=== PATIENT | male | born 1975 | race Caucasian/White ===

== ENCOUNTER 2017-02-21 21:10 | Inpatient (IN) | payer MEDICAID, OTHER ==
[~2017-02-21] VITALS: Ht 175.3 cm; Wt 74.6 kg
[2017-02-21] MEDS ORDERED: RISP2 PO (21:43)
[2017-02-21 22:02] LABS: BASOPHILS % (AUTO) 0.6 % (0.0-2.0); EOSINOPHILS % (AUTO) 1.8 % (1.0-6.0); HEMATOCRIT 39.7 % (41-53); HEMOGLOBIN 13.5 g/dL (13.5-17.5); LYMPHOCYTES # (AUTO) 1.8 K/uL (1.0-4.8); LYMPHOCYTES % (AUTO) 31.1 % (22.0-44.0); MEAN CORPUSCULAR HEMOGLOBIN 29.6 pg (26.0-34.0); MEAN CORPUSCULAR HGB CONC 33.9 G/dL (31.0-37.0); MEAN CORPUSCULAR VOLUME 87 fL (80-100); MONOCYTES # (AUTO) 0.5 K/uL (0.1-1.0); MONOCYTES % (AUTO) 9.3 % (2.0-9.0); NEUTROPHILS # (AUTO) 3.2 K/uL (1.8-7.7); NEUTROPHILS % (AUTO) 57.2 % (40.0-70.0); PLATELET COUNT (AUTO) 310 K/uL (150-450); RED BLOOD CELL COUNT(AUTO) 4.55 MIL/uL (4.50-5.90); RED CELL DISTRIBUTION WIDTH 12.9 % (11.5-14.5); WHITE BLOOD COUNT (AUTO) 5.7 K/uL (4.5-11.0)
[2017-02-21 22:06] LABS: GLUCOSE,POINT OF CARE 105 MG/DL (70-110)
[2017-02-21 22:13] LABS: ANION GAP 11 mmol/L (8-16); CARBON DIOXIDE 28 mmol/L (22-29); CHLORIDE 100 mmol/L (98-107); CREATININE 0.77 mg/dL (0.60-1.30); GLOMERULAR FILTR. RATE CALC > 60 mL/min (>60); POTASSIUM 3.6 mmol/L (3.5-5.1); SODIUM SERUM 139 mmol/L (136-145); UREA NITROGEN, BLOOD 17 mg/dL (7-18)
[2017-02-21 22:18] LABS: ALANINE AMINOTRANSFERASE 43 U/L (12-78); ALBUMIN 4.2 g/dL (3.4-5.0); ASPARTATE AMINOTRANSFERASE 43 U/L (15-37); BILIRUBIN,TOTAL 3.1 mg/dL (0.1-1.0); TOTAL PROTEIN, SERUM 7.7 g/dL (6.4-8.2)
[2017-02-21] MEDS ORDERED: HALOPERIDOL LACTATE 5 MG/ML VIAL IM ONE (23:00)
[2017-02-21] MEDS ORDERED: DiphenhydrAMINE HCL 50 MG/ML VIAL IM ONE (23:00)
[2017-02-21] MEDS ORDERED: LORazepam 2 MG/ML VIAL IM ONE (23:00)
[2017-02-21] MEDS ORDERED: RisperiDONE 1 MG TABLET PO ONE (23:00)
[2017-02-21] MEDS ORDERED: LORazepam 2 MG TABLET PO ONE (23:00)
[2017-02-22 01:00] VITALS: BP 126/68
[2017-02-22] MEDS ORDERED: HALOPERIDOL 5 MG TABLET PO PRN (05:00)
[2017-02-22] MEDS ORDERED: LORazepam 2 MG TABLET PO PRN (05:00)
[2017-02-22] MEDS ORDERED: ZOLPIDEM TARTRATE 10 MG TABLET PO PRN (05:00)
[2017-02-22] MEDS: RisperiDONE 2 MG TABLET PO SCH ×2 (08:15→17:11)
[2017-02-22 13:56] VITALS: BP 107/64
[2017-02-22] MEDS ORDERED: GLUCAGON,HUMAN RECOMBINANT 1 MG VIAL IM PRN (15:45)
[2017-02-22 16:00] VITALS: BP 118/71
[2017-02-22] MEDS: INSULIN ASPART 100 UNITS/ML SQ PRN ×2 (17:12→20:48)
[2017-02-22 17:57] LABS: GLUCOSE COMMENT 1 Received Meds; GLUCOSE,POINT OF CARE 196 MG/DL (70-110)
[2017-02-22 21:13] LABS: GLUCOSE COMMENT 1 Received Meds; GLUCOSE,POINT OF CARE 253 MG/DL (70-110)
[2017-02-23] MEDS ORDERED: PNEUMOCOCCAL VACCINE POLYVALENT 0.5 ML VIAL [PPSV23] IM ONE (02:00)
[2017-02-23 06:18] LABS: GLUCOSE,POINT OF CARE 136 MG/DL (70-110)
[2017-02-23 07:09] VITALS: BP 106/61
[2017-02-23 08:24] VITALS: BP 104/67
[2017-02-23] MEDS: RisperiDONE 2 MG TABLET PO SCH ×2 (09:23→16:51)
[2017-02-23 16:13] VITALS: BP 112/66
[2017-02-23] MEDS: MetFORMIN HCL 500 MG TABLET PO SCH (16:51)
[2017-02-23 17:22] LABS: GLUCOSE,POINT OF CARE 215 MG/DL (70-110)
[2017-02-24 06:02] LABS: GLUCOSE,POINT OF CARE 123 MG/DL (70-110)
[2017-02-24] MEDS: MetFORMIN HCL 500 MG TABLET PO SCH ×2 (06:47→16:24)
[2017-02-24 07:16] VITALS: BP 113/69
[2017-02-24 08:33] VITALS: BP 128/68
[2017-02-24] MEDS: RisperiDONE 2 MG TABLET PO SCH ×2 (08:44→16:23)
[2017-02-24] MEDS ORDERED: METF500T4 PO (10:43)
[2017-02-24] MEDS: INSULIN ASPART 100 UNITS/ML SQ PRN ×2 (11:15→16:25)
[2017-02-24 11:17] LABS: GLUCOSE,POINT OF CARE 144 MG/DL (70-110)
[2017-02-24 16:02] VITALS: BP 137/79
[2017-02-24 17:13] LABS: GLUCOSE COMMENT 1 Received Meds; GLUCOSE,POINT OF CARE 184 MG/DL (70-110)
== END 2017-02-24 18:55 | disposition home or self-care (01) | DRG 750 ==
LOC: EMS 21:12 → B3A 02-22 11:51
PROVIDERS: ADMIT Psychiatry & Neurology Child & Adolescent Psychiatry; ATTEND Psychiatry & Neurology Child & Adolescent Psychiatry
DX: F20.0 Paranoid schizophrenia (principal); E11.9 Type 2 diabetes mellitus without complications; F17.210 Nicotine dependence, cigarettes, uncomplicated; F15.90 Other stimulant use, unspecified, uncomplicated; Z79.84 Long term (current) use of oral hypoglycemic drugs; Z79.899 Other long term (current) drug therapy; Z87.891 Personal history of nicotine dependence; Z71.51 Drug abuse counseling and surveillance of drug abuser; Z71.6 Tobacco abuse counseling; Z28.21 Immunization not carried out because of patient refusal
CPT/HCPCS: 82962; 90471; 99285; G0480; J1200; J1630; J2060

== ENCOUNTER 2017-11-01 19:44 | Inpatient (IN) | payer MEDICAID, SELFPAY ==
[~2017-11-01] VITALS: Ht 175.3 cm; Wt 74.4 kg
[~2017-11-01 19:44] MED LIST: METF500T4 PO; RISP2 PO
[2017-11-01 20:12] LABS: GLUCOSE,POINT OF CARE 104 MG/DL (70-110)
[2017-11-01] MEDS: RisperiDONE 1 MG TABLET PO ONE ×2 (20:35→20:40)
[2017-11-01] MEDS ORDERED: HALOPERIDOL 5 MG TABLET PO PRN (20:45)
[2017-11-01] MEDS ORDERED: ZOLPIDEM TARTRATE 10 MG TABLET PO PRN (20:45)
[2017-11-01 21:39] LABS: AMPHET/METH SCREEN,URINE POSITIVE (NEGATIVE); BARBITURATE SCREEN, URINE NEGATIVE (NEGATIVE); BENZODIAZEPINES SCREEN,URINE NEGATIVE (NEGATIVE); CANNABINOID SCREEN,URINE NEGATIVE (NEGATIVE); COCAINE SCREEN,URINE NEGATIVE (NEGATIVE); METHADONE SCREEN, URINE NEGATIVE (NEGATIVE); OPIATE SCREEN,URINE NEGATIVE (NEGATIVE)
[2017-11-01 21:42] LABS: PHENCYCLIDINE SCREEN,URINE NEGATIVE (NEGATIVE)
[2017-11-01 21:45] VITALS: BP 146/88
[2017-11-01] MEDS ORDERED: GLUCAGON,HUMAN RECOMBINANT 1 MG VIAL IM PRN (23:00)
[2017-11-01] MEDS ORDERED: PNEUMOCOCCAL VACCINE POLYVALENT 0.5 ML VIAL [PPSV23] IM ONE (23:45)
[2017-11-01] MEDS ORDERED: INFLUENZA VIRUS VACCINE QVS 2017-18 (3YR+)/PF 60 MCG/0.5 ML SYRINGE IM ONE (23:45)
[2017-11-02 00:58] VITALS: BP 131/84
[2017-11-02 09:04] VITALS: BP 118/67
[2017-11-02] MEDS ORDERED: ACETAMINOPHEN 325 MG TABLET PO PRN (09:30)
[2017-11-02] MEDS ORDERED: IBUPROFEN 600 MG TABLET PO PRN (09:30)
[2017-11-02] MEDS ORDERED: PETROLATUM,WHITE 71 GM JELLY TP PRN (09:30)
[2017-11-02] MEDS ORDERED: CloNIDine HCL 0.1 MG TABLET PO PRN (09:30)
[2017-11-02] MEDS ORDERED: BACITRACIN 28.4 GM OINTMENT TP PRN (09:30)
[2017-11-02] MEDS ORDERED: LOPERAMIDE HCL 2 MG CAPSULE PO PRN (09:30)
[2017-11-02] MEDS ORDERED: ALBUTEROL SULFATE HFA 90 MCG/PUFF 8 GM INHALER IH PRN (09:30)
[2017-11-02] MEDS ORDERED: MAGNESIUM HYDROXIDE SUSPENSION 30 ML UDCUP PO PRN (09:30)
[2017-11-02] MEDS ORDERED: ONDANSETRON HCL 4 MG TABLET PO PRN (09:30)
[2017-11-02] MEDS ORDERED: MAG HYDROX/AL HYDROX/SIMETH ES 30 ML SUSPENSION UDCUP PO PRN (09:30)
[2017-11-02] MEDS: OMEPRAZOLE 20 MG CAPSULE PO SCH (12:11)
[2017-11-02] MEDS: DOCUSATE SODIUM 100 MG CAPSULE PO SCH (12:11)
[2017-11-02] MEDS: LORazepam 2 MG TABLET PO PRN (16:28)
[2017-11-02 17:15] VITALS: BP 120/74
[2017-11-02] MEDS: BENZOCAINE/MENTHOL LOZENGE MM PRN (17:21)
[2017-11-02 17:42] LABS: GLUCOMETER DEV NAME(LOC) BV3N5; GLUCOSE,POINT OF CARE 137 MG/DL (70-110)
[2017-11-03 06:35] VITALS: BP 123/70
[2017-11-03] MEDS: MetFORMIN HCL 500 MG TABLET PO SCH ×2 (06:55→16:40)
[2017-11-03 08:08] VITALS: BP 112/62
[2017-11-03] MEDS: OMEPRAZOLE 20 MG CAPSULE PO SCH (08:48)
[2017-11-03] MEDS: LORazepam 2 MG TABLET PO PRN (08:48)
[2017-11-03] MEDS: DOCUSATE SODIUM 100 MG CAPSULE PO SCH (08:48)
[2017-11-03] MEDS: GuaiFENesin/D-METHORPHAN [SUGAR-FREE] 200-20MG/10 ML SYRUP UDCUP PO PRN ×2 (09:32→16:40)
[2017-11-03 12:43] LABS: GLUCOMETER DEV NAME(LOC) BV3N5; GLUCOSE,POINT OF CARE 140 MG/DL (70-110)
[2017-11-03 16:08] VITALS: BP 120/71
[2017-11-03 17:17] LABS: GLUCOMETER DEV NAME(LOC) BV3N5; GLUCOSE,POINT OF CARE 169 MG/DL (70-110)
[2017-11-04 06:14] VITALS: BP 100/65
[2017-11-04] MEDS: MetFORMIN HCL 500 MG TABLET PO SCH ×2 (06:36→16:40)
[2017-11-04] MEDS: DOCUSATE SODIUM 100 MG CAPSULE PO SCH (09:10)
[2017-11-04] MEDS: OMEPRAZOLE 20 MG CAPSULE PO SCH (09:10)
[2017-11-04] MEDS: LORazepam 2 MG TABLET PO PRN ×2 (09:11→16:40)
[2017-11-04] MEDS: GuaiFENesin/D-METHORPHAN [SUGAR-FREE] 200-20MG/10 ML SYRUP UDCUP PO PRN ×2 (09:29→16:40)
[2017-11-04 09:30] VITALS: BP 116/75
[2017-11-04] MEDS: INSULIN ASPART 100 UNITS/ML SQ PRN ×2 (11:56→16:41)
[2017-11-04 12:28] LABS: GLUCOMETER DEV NAME(LOC) BV3N5; GLUCOSE,POINT OF CARE 176 MG/DL (70-110)
[2017-11-04 16:35] VITALS: BP 115/82
[2017-11-04] MEDS: RisperiDONE 2 MG TABLET PO SCH (16:40)
[2017-11-04] MEDS: CARBAMIDE PEROXIDE 6.5% 15 ML OTIC SOLUTION AD SCH (16:44)
[2017-11-04 17:53] LABS: GLUCOMETER DEV NAME(LOC) BV3N5; GLUCOSE,POINT OF CARE 158 MG/DL (70-110)
[2017-11-05 05:27] VITALS: BP 122/73
[2017-11-05] MEDS: MetFORMIN HCL 500 MG TABLET PO SCH ×2 (06:53→16:34)
[2017-11-05 08:30] VITALS: BP 105/52
[2017-11-05] MEDS: DOCUSATE SODIUM 100 MG CAPSULE PO SCH (09:00)
[2017-11-05] MEDS: OMEPRAZOLE 20 MG CAPSULE PO SCH (09:00)
[2017-11-05] MEDS: LORazepam 2 MG TABLET PO PRN (09:32)
[2017-11-05] MEDS: CARBAMIDE PEROXIDE 6.5% 15 ML OTIC SOLUTION AD SCH ×2 (09:32→16:09)
[2017-11-05] MEDS: RisperiDONE 2 MG TABLET PO SCH ×2 (09:41→16:10)
[2017-11-05 11:53] LABS: GLUCOMETER DEV NAME(LOC) BV3N5; GLUCOSE,POINT OF CARE 124 MG/DL (70-110)
[2017-11-05 16:03] VITALS: BP 101/53
[2017-11-05 17:43] LABS: GLUCOMETER DEV NAME(LOC) BV3N5; GLUCOSE,POINT OF CARE 129 MG/DL (70-110)
[2017-11-05 20:52] LABS: GLUCOMETER DEV NAME(LOC) BV3N5; GLUCOSE,POINT OF CARE 144 MG/DL (70-110)
[2017-11-06 06:13] VITALS: BP 115/63
[2017-11-06 06:22] LABS: GLUCOMETER DEV NAME(LOC) BV3N5; GLUCOSE,POINT OF CARE 120 MG/DL (70-110)
[2017-11-06] MEDS: MetFORMIN HCL 500 MG TABLET PO SCH ×2 (06:39→17:15)
[2017-11-06 08:10] VITALS: BP 107/62
[2017-11-06] MEDS: BENZOCAINE/MENTHOL LOZENGE MM PRN (09:26)
[2017-11-06] MEDS: LORazepam 2 MG TABLET PO PRN ×2 (09:27→17:16)
[2017-11-06] MEDS: DOCUSATE SODIUM 100 MG CAPSULE PO SCH (09:27)
[2017-11-06] MEDS: OMEPRAZOLE 20 MG CAPSULE PO SCH (09:27)
[2017-11-06] MEDS: RisperiDONE 2 MG TABLET PO SCH ×2 (09:27→17:15)
[2017-11-06] MEDS: CARBAMIDE PEROXIDE 6.5% 15 ML OTIC SOLUTION AD SCH ×2 (10:04→17:15)
[2017-11-06 16:06] VITALS: BP 114/62
[2017-11-06] MEDS: INSULIN ASPART 100 UNITS/ML SQ PRN (16:30)
[2017-11-06 17:08] LABS: GLUCOMETER DEV NAME(LOC) BV3N5; GLUCOSE,POINT OF CARE 147 MG/DL (70-110)
[2017-11-06] MEDS: GuaiFENesin/D-METHORPHAN [SUGAR-FREE] 200-20MG/10 ML SYRUP UDCUP PO PRN (17:16)
[2017-11-07] MEDS: MetFORMIN HCL 500 MG TABLET PO SCH (06:46)
[2017-11-07 06:47] LABS: GLUCOMETER DEV NAME(LOC) BV3N5; GLUCOSE,POINT OF CARE 111 MG/DL (70-110)
[2017-11-07 06:59] VITALS: BP 110/70
[2017-11-07 08:57] VITALS: BP 105/69
[2017-11-07] MEDS: RisperiDONE 2 MG TABLET PO SCH (09:07)
[2017-11-07] MEDS: OMEPRAZOLE 20 MG CAPSULE PO SCH (09:07)
[2017-11-07] MEDS: DOCUSATE SODIUM 100 MG CAPSULE PO SCH (09:07)
[2017-11-07] MEDS: CARBAMIDE PEROXIDE 6.5% 15 ML OTIC SOLUTION AD SCH (09:08)
[2017-11-07] MEDS: GuaiFENesin/D-METHORPHAN [SUGAR-FREE] 200-20MG/10 ML SYRUP UDCUP PO PRN (10:15)
[2017-11-07 11:27] LABS: GLUCOMETER DEV NAME(LOC) BV3N5; GLUCOSE,POINT OF CARE 112 MG/DL (70-110)
[2017-11-07] MEDS ORDERED: CARB15DR61 (12:39)
== END 2017-11-07 14:11 | disposition home or self-care (01) | DRG 750 ==
LOC: EMS 19:47 → B3A 20:58
PROVIDERS: ADMIT Psychiatry & Neurology Psychiatry; ATTEND Psychiatry & Neurology Psychiatry
DX: F25.9 Schizoaffective disorder, unspecified (principal); E11.9 Type 2 diabetes mellitus without complications; R45.851 Suicidal ideations; F17.210 Nicotine dependence, cigarettes, uncomplicated; F41.9 Anxiety disorder, unspecified; F15.90 Other stimulant use, unspecified, uncomplicated; K21.9 Gastro-esophageal reflux disease without esophagitis; Z79.899 Other long term (current) drug therapy
CPT/HCPCS: 82962; 90471; 99285

== ENCOUNTER 2018-01-01 20:35 | Emergency (ER) | payer MEDICAID, OTHER ==
[~2018-01-01] VITALS: Ht 175.3 cm; Wt 75.5 kg
[~2018-01-01 20:35] MED LIST changes: +BENZ2TAB10 PO; +CARB15DR61; +LEVO25TA9 PO
[2018-01-01 20:39] VITALS: BP 140/65
[2018-01-01 20:47] LABS: GLUCOSE,POINT OF CARE 86 MG/DL (70-110)
[2018-01-01 21:04] LABS: ANION GAP 6 mmol/L (8-16); CARBON DIOXIDE 35 mmol/L (22-29); CHLORIDE 100 mmol/L (98-107); CREATININE 0.82 mg/dL (0.60-1.30); GLOMERULAR FILTR. RATE CALC > 60 mL/min (>60); GLUCOSE,RANDOM 104 mg/dL (70-110); POTASSIUM 3.9 mmol/L (3.5-5.1); SODIUM SERUM 141 mmol/L (136-145); UREA NITROGEN, BLOOD 20 mg/dL (7-18)
[2018-01-01 21:08] LABS: BASOPHILS % (AUTO) 0.6 % (0.0-2.0); EOSINOPHILS % (AUTO) 1.3 % (1.0-6.0); HEMATOCRIT 40.3 % (41-53); HEMOGLOBIN 14.2 g/dL (13.5-17.5); LYMPHOCYTES % (AUTO) 52.2 % (22.0-44.0); MEAN CORPUSCULAR HEMOGLOBIN 30.9 pg (26.0-34.0); MEAN CORPUSCULAR HGB CONC 35.3 G/dL (31.0-37.0); MEAN CORPUSCULAR VOLUME 88 fL (80-100); MONOCYTES # (AUTO) 0.3 K/uL (0.1-1.0); MONOCYTES % (AUTO) 8.8 % (2.0-9.0); NEUTROPHILS # (AUTO) 1.5 K/uL (1.8-7.7); NEUTROPHILS % (AUTO) 37.1 % (40.0-70.0); PLATELET COUNT (AUTO) 297 K/uL (150-450); RED CELL DISTRIBUTION WIDTH 12.6 % (11.5-14.5)
[2018-01-01 21:10] LABS: AMPHET/METH SCREEN,URINE NEGATIVE (NEGATIVE); BARBITURATE SCREEN, URINE NEGATIVE (NEGATIVE); BENZODIAZEPINES SCREEN,URINE NEGATIVE (NEGATIVE); CANNABINOID SCREEN,URINE NEGATIVE (NEGATIVE); COCAINE SCREEN,URINE NEGATIVE (NEGATIVE); METHADONE SCREEN, URINE NEGATIVE (NEGATIVE); OPIATE SCREEN,URINE NEGATIVE (NEGATIVE)
[2018-01-01 21:10] LABS: ALANINE AMINOTRANSFERASE 24 U/L (12-78); ALBUMIN 4.1 g/dL (3.4-5.0); ALKALINE PHOSPHATASE 45 U/L (46-116); ASPARTATE AMINOTRANSFERASE 15 U/L (15-37); BILIRUBIN,TOTAL 0.6 mg/dL (0.1-1.0); TOTAL PROTEIN, SERUM 7.4 g/dL (6.4-8.2)
[2018-01-01 21:11] LABS: PHENCYCLIDINE SCREEN,URINE NEGATIVE (NEGATIVE)
== END 2018-01-01 22:41 | disposition home or self-care (01) ==
LOC: EMS 20:40
DX: F20.9 Schizophrenia, unspecified (principal); E11.9 Type 2 diabetes mellitus without complications; F17.210 Nicotine dependence, cigarettes, uncomplicated
CPT/HCPCS: 36415; 80053; 80307; 82962; 85025; 99284; 99406; G0480

== ENCOUNTER 2018-01-02 07:08 | Emergency (ER) | payer OTHER ==
[~2018-01-02] VITALS: Ht 175.3 cm; Wt 75.0 kg
[2018-01-02 07:38] LABS: BASOPHILS % (AUTO) 0.6 % (0.0-2.0); EOSINOPHILS % (AUTO) 1.9 % (1.0-6.0); HEMOGLOBIN 13.7 g/dL (13.5-17.5); LYMPHOCYTES % (AUTO) 41.8 % (22.0-44.0); MEAN CORPUSCULAR HEMOGLOBIN 30.9 pg (26.0-34.0); MEAN CORPUSCULAR HGB CONC 35.3 G/dL (31.0-37.0); MEAN CORPUSCULAR VOLUME 88 fL (80-100); MONOCYTES # (AUTO) 0.5 K/uL (0.1-1.0); MONOCYTES % (AUTO) 10.6 % (2.0-9.0); NEUTROPHILS # (AUTO) 2.2 K/uL (1.8-7.7); NEUTROPHILS % (AUTO) 45.1 % (40.0-70.0); PLATELET COUNT (AUTO) 272 K/uL (150-450); RED BLOOD CELL COUNT(AUTO) 4.45 MIL/uL (4.50-5.90); RED CELL DISTRIBUTION WIDTH 12.7 % (11.5-14.5)
[2018-01-02 07:48] LABS: ANION GAP 7 mmol/L (8-16); CALCIUM, TOTAL 8.7 mg/dL (8.8-10.5); CARBON DIOXIDE 34 mmol/L (22-29); CHLORIDE 100 mmol/L (98-107); CREATININE 0.83 mg/dL (0.60-1.30); GLOMERULAR FILTR. RATE CALC > 60 mL/min (>60); GLUCOSE,RANDOM 111 mg/dL (70-110); POTASSIUM 3.8 mmol/L (3.5-5.1); SODIUM SERUM 141 mmol/L (136-145); UREA NITROGEN, BLOOD 16 mg/dL (7-18)
[2018-01-02 07:53] LABS: ALANINE AMINOTRANSFERASE 27 U/L (12-78); ALBUMIN 3.9 g/dL (3.4-5.0); ALKALINE PHOSPHATASE 44 U/L (46-116); ASPARTATE AMINOTRANSFERASE 18 U/L (15-37); BILIRUBIN,TOTAL 0.6 mg/dL (0.1-1.0); TOTAL PROTEIN, SERUM 7.1 g/dL (6.4-8.2)
[2018-01-02 08:42] LABS: AMPHET/METH SCREEN,URINE NEGATIVE (NEGATIVE); BARBITURATE SCREEN, URINE NEGATIVE (NEGATIVE); BENZODIAZEPINES SCREEN,URINE NEGATIVE (NEGATIVE); CANNABINOID SCREEN,URINE NEGATIVE (NEGATIVE); COCAINE SCREEN,URINE NEGATIVE (NEGATIVE); METHADONE SCREEN, URINE NEGATIVE (NEGATIVE); OPIATE SCREEN,URINE NEGATIVE (NEGATIVE)
[2018-01-02 08:45] LABS: PHENCYCLIDINE SCREEN,URINE NEGATIVE (NEGATIVE)
[2018-01-02 09:49] VITALS: BP 132/88
== END 2018-01-02 10:00 | disposition home or self-care (01) ==
LOC: EMS 07:09
DX: F32.9 Major depressive disorder, single episode, unspecified (principal); F20.9 Schizophrenia, unspecified; E11.9 Type 2 diabetes mellitus without complications; F17.210 Nicotine dependence, cigarettes, uncomplicated
CPT/HCPCS: 36415; 80053; 80307; 82962; 85025; 99285; G0480

== ENCOUNTER 2018-01-04 08:22 | Inpatient (IN) | payer MEDICAID, OTHER ==
[~2018-01-04] VITALS: Ht 170.2 cm; Wt 73.5 kg
[~2018-01-04 08:22] MED LIST changes: -CARB15DR61
[2018-01-04 08:37] LABS: GLUCOSE,POINT OF CARE 100 MG/DL (70-110)
[2018-01-04 09:04] LABS: BASOPHILS % (AUTO) 0.4 % (0.0-2.0); EOSINOPHILS % (AUTO) 0.1 % (1.0-6.0); HEMATOCRIT 40.4 % (41-53); HEMOGLOBIN 14.3 g/dL (13.5-17.5); LYMPHOCYTES # (AUTO) 1.1 K/uL (1.0-4.8); LYMPHOCYTES % (AUTO) 14.8 % (22.0-44.0); MEAN CORPUSCULAR HEMOGLOBIN 30.8 pg (26.0-34.0); MEAN CORPUSCULAR HGB CONC 35.3 G/dL (31.0-37.0); MEAN CORPUSCULAR VOLUME 87 fL (80-100); MONOCYTES # (AUTO) 0.5 K/uL (0.1-1.0); MONOCYTES % (AUTO) 6.7 % (2.0-9.0); PLATELET COUNT (AUTO) 299 K/uL (150-450); RED BLOOD CELL COUNT(AUTO) 4.64 MIL/uL (4.50-5.90); RED CELL DISTRIBUTION WIDTH 12.8 % (11.5-14.5)
[2018-01-04 09:06] LABS: AMPHET/METH SCREEN,URINE POSITIVE (NEGATIVE); BARBITURATE SCREEN, URINE NEGATIVE (NEGATIVE); BENZODIAZEPINES SCREEN,URINE NEGATIVE (NEGATIVE); CANNABINOID SCREEN,URINE NEGATIVE (NEGATIVE); COCAINE SCREEN,URINE NEGATIVE (NEGATIVE); METHADONE SCREEN, URINE NEGATIVE (NEGATIVE); OPIATE SCREEN,URINE NEGATIVE (NEGATIVE)
[2018-01-04 09:07] LABS: PHENCYCLIDINE SCREEN,URINE NEGATIVE (NEGATIVE)
[2018-01-04 09:13] LABS: ANION GAP 12 mmol/L (8-16); CALCIUM, TOTAL 9.5 mg/dL (8.8-10.5); CARBON DIOXIDE 29 mmol/L (22-29); CHLORIDE 98 mmol/L (98-107); CREATININE 0.99 mg/dL (0.60-1.30); GLOMERULAR FILTR. RATE CALC > 60 mL/min (>60); GLUCOSE,RANDOM 103 mg/dL (70-110); SODIUM SERUM 139 mmol/L (136-145); UREA NITROGEN, BLOOD 26 mg/dL (7-18)
[2018-01-04 09:19] LABS: ALANINE AMINOTRANSFERASE 26 U/L (12-78); ALBUMIN 4.6 g/dL (3.4-5.0); ALKALINE PHOSPHATASE 58 U/L (46-116); ASPARTATE AMINOTRANSFERASE 31 U/L (15-37); BILIRUBIN,TOTAL 2.4 mg/dL (0.1-1.0)
[2018-01-04] MEDS ORDERED: HALOPERIDOL 5 MG TABLET PO ONE (10:00)
[2018-01-04] MEDS ORDERED: LORazepam 1 MG TABLET PO ONE (10:00)
[2018-01-04] MEDS ORDERED: DiphenhydrAMINE HCL 25 MG CAPSULE PO ONE (10:00)
[2018-01-04 11:12] LABS: GLUCOSE,POINT OF CARE 112 MG/DL (70-110)
[2018-01-04] MEDS ORDERED: HALOPERIDOL 5 MG TABLET PO PRN (12:00)
[2018-01-04] MEDS ORDERED: ZOLPIDEM TARTRATE 10 MG TABLET PO PRN (12:00)
[2018-01-04 12:31] VITALS: BP 118/72
[2018-01-04] MEDS ORDERED: PNEUMOCOCCAL VACCINE POLYVALENT 0.5 ML VIAL [PPSV23] IM ONE (12:45)
[2018-01-04] MEDS: OLANZapine 5 MG TABLET PO SCH (16:16)
[2018-01-04] MEDS: BENZTROPINE MESYLATE 2 MG TABLET PO SCH (16:16)
[2018-01-04 16:19] VITALS: BP 102/62
[2018-01-04] MEDS ORDERED: RisperiDONE 2 MG TABLET PO SCH (17:00)
[2018-01-05 01:40] VITALS: BP 101/66
[2018-01-05 08:31] VITALS: BP 116/70
[2018-01-05] MEDS: BENZTROPINE MESYLATE 2 MG TABLET PO SCH (08:31)
[2018-01-05] MEDS: OLANZapine 5 MG TABLET PO SCH ×2 (08:31→16:44)
[2018-01-05] MEDS ORDERED: PETROLATUM,WHITE 71 GM JELLY TP PRN (10:00)
[2018-01-05] MEDS ORDERED: CloNIDine HCL 0.1 MG TABLET PO PRN (10:00)
[2018-01-05] MEDS ORDERED: BACITRACIN 28.4 GM OINTMENT TP PRN (10:00)
[2018-01-05] MEDS ORDERED: LOPERAMIDE HCL 2 MG CAPSULE PO PRN (10:00)
[2018-01-05] MEDS ORDERED: ALBUTEROL SULFATE HFA 90 MCG/PUFF 8 GM INHALER IH PRN (10:00)
[2018-01-05] MEDS ORDERED: MAGNESIUM HYDROXIDE SUSPENSION 30 ML UDCUP PO PRN (10:00)
[2018-01-05] MEDS ORDERED: ACETAMINOPHEN 325 MG TABLET PO PRN (10:00)
[2018-01-05] MEDS ORDERED: ONDANSETRON HCL 4 MG TABLET PO PRN (10:00)
[2018-01-05] MEDS ORDERED: IBUPROFEN 600 MG TABLET PO PRN (10:00)
[2018-01-05] MEDS ORDERED: MAG HYDROX/AL HYDROX/SIMETH ES 30 ML SUSPENSION UDCUP PO PRN (10:00)
[2018-01-05] MEDS ORDERED: BENZOCAINE/MENTHOL LOZENGE MM PRN (10:00)
[2018-01-05] MEDS: BENZTROPINE MESYLATE 1 MG TABLET PO SCH (16:44)
[2018-01-05] MEDS: MetFORMIN HCL 500 MG TABLET PO SCH (16:44)
[2018-01-05 16:53] LABS: GLUCOMETER DEV NAME(LOC) BV2N3; GLUCOSE,POINT OF CARE 132 MG/DL (70-110)
[2018-01-05 16:55] VITALS: BP 107/61
[2018-01-05 20:38] LABS: GLUCOMETER DEV NAME(LOC) BV2N3; GLUCOSE,POINT OF CARE 161 MG/DL (70-110)
[2018-01-06 05:32] VITALS: BP 103/65
[2018-01-06 06:33] LABS: GLUCOMETER DEV NAME(LOC) BV2N3; GLUCOSE,POINT OF CARE 79 MG/DL (70-110)
[2018-01-06] MEDS: LEVOTHYROXINE SODIUM 50 MCG TABLET PO SCH (06:34)
[2018-01-06] MEDS: MetFORMIN HCL 500 MG TABLET PO SCH ×2 (07:07→16:41)
[2018-01-06 08:12] VITALS: BP 110/57
[2018-01-06] MEDS: DOCUSATE SODIUM 100 MG CAPSULE PO SCH (09:48)
[2018-01-06] MEDS: OLANZapine 5 MG TABLET PO SCH ×2 (09:49→16:41)
[2018-01-06] MEDS: OMEPRAZOLE 20 MG CAPSULE PO SCH (09:49)
[2018-01-06] MEDS: BENZTROPINE MESYLATE 1 MG TABLET PO SCH ×2 (09:49→16:40)
[2018-01-06] MEDS: CHOLECALCIFEROL (VIT D3) 1,000 UNITS TABLET PO SCH (09:49)
[2018-01-06 11:43] LABS: GLUCOMETER DEV NAME(LOC) BV2N3; GLUCOSE,POINT OF CARE 98 MG/DL (70-110)
[2018-01-06 16:04] VITALS: BP 106/67
[2018-01-06] MEDS: LORazepam 2 MG TABLET PO PRN (16:40)
[2018-01-06 16:47] LABS: GLUCOMETER DEV NAME(LOC) BV2N3; GLUCOSE,POINT OF CARE 193 MG/DL (70-110)
[2018-01-06] MEDS ORDERED: INSULIN REGULAR, HUMAN 100 UNITS/ML SQ PRN (19:30)
[2018-01-06] MEDS ORDERED: DEXTROSE 50%-WATER 25 GM/50 ML SYRINGE IVP PRN (19:30)
[2018-01-07] MEDS ORDERED: GLUCAGON,HUMAN RECOMBINANT 1 MG VIAL IM PRN (00:30)
[2018-01-07 01:37] LABS: GLUCOMETER DEV NAME(LOC) BV2N3; GLUCOSE,POINT OF CARE 149 MG/DL (70-110)
[2018-01-07 05:49] VITALS: BP 114/72
[2018-01-07 06:28] LABS: GLUCOMETER DEV NAME(LOC) BV2N3; GLUCOSE,POINT OF CARE 74 MG/DL (70-110)
[2018-01-07] MEDS: LEVOTHYROXINE SODIUM 50 MCG TABLET PO SCH (07:01)
[2018-01-07] MEDS: MetFORMIN HCL 500 MG TABLET PO SCH ×2 (07:01→16:42)
[2018-01-07] MEDS: OMEPRAZOLE 20 MG CAPSULE PO SCH (08:25)
[2018-01-07] MEDS: CHOLECALCIFEROL (VIT D3) 1,000 UNITS TABLET PO SCH (08:25)
[2018-01-07] MEDS: DOCUSATE SODIUM 100 MG CAPSULE PO SCH (08:25)
[2018-01-07] MEDS: BENZTROPINE MESYLATE 1 MG TABLET PO SCH ×2 (08:25→16:07)
[2018-01-07] MEDS: OLANZapine 5 MG TABLET PO SCH ×2 (08:25→16:43)
[2018-01-07 10:06] VITALS: BP 115/60
[2018-01-07 11:03] LABS: GLUCOMETER DEV NAME(LOC) BV2N3; GLUCOSE,POINT OF CARE 121 MG/DL (70-110)
[2018-01-07] MEDS: LORazepam 2 MG TABLET PO PRN (16:07)
[2018-01-07 16:08] VITALS: BP 108/84
[2018-01-07 16:43] LABS: GLUCOMETER DEV NAME(LOC) BV2N3; GLUCOSE,POINT OF CARE 122 MG/DL (70-110)
[2018-01-07 20:37] LABS: GLUCOMETER DEV NAME(LOC) BV2N3; GLUCOSE,POINT OF CARE 125 MG/DL (70-110)
[2018-01-08 06:00] VITALS: BP 102/69
[2018-01-08 06:28] LABS: GLUCOMETER DEV NAME(LOC) BV2N3; GLUCOSE,POINT OF CARE 94 MG/DL (70-110)
[2018-01-08] MEDS: MetFORMIN HCL 500 MG TABLET PO SCH ×2 (06:40→16:12)
[2018-01-08] MEDS: LEVOTHYROXINE SODIUM 50 MCG TABLET PO SCH (06:40)
[2018-01-08 08:29] VITALS: BP 108/67
[2018-01-08] MEDS: OLANZapine 5 MG TABLET PO SCH ×2 (09:31→16:13)
[2018-01-08] MEDS: CHOLECALCIFEROL (VIT D3) 1,000 UNITS TABLET PO SCH (09:31)
[2018-01-08] MEDS: OMEPRAZOLE 20 MG CAPSULE PO SCH (09:32)
[2018-01-08] MEDS: BENZTROPINE MESYLATE 1 MG TABLET PO SCH ×2 (09:32→16:12)
[2018-01-08] MEDS: DOCUSATE SODIUM 100 MG CAPSULE PO SCH (09:32)
[2018-01-08 12:12] LABS: GLUCOMETER DEV NAME(LOC) BV2N3; GLUCOSE,POINT OF CARE 170 MG/DL (70-110)
[2018-01-08 16:00] VITALS: BP 110/64
[2018-01-08] MEDS: LORazepam 2 MG TABLET PO PRN (16:13)
[2018-01-08 16:32] LABS: GLUCOMETER DEV NAME(LOC) BV2N3; GLUCOSE,POINT OF CARE 116 MG/DL (70-110)
[2018-01-08] MEDS: INSULIN REGULAR, HUMAN 100 UNITS/ML SQ PRN (20:31)
[2018-01-08 20:42] LABS: GLUCOMETER DEV NAME(LOC) BV2N3; GLUCOSE,POINT OF CARE 141 MG/DL (70-110)
[2018-01-09 05:47] VITALS: BP 108/72
[2018-01-09] MEDS: LEVOTHYROXINE SODIUM 50 MCG TABLET PO SCH (06:45)
[2018-01-09] MEDS: MetFORMIN HCL 500 MG TABLET PO SCH ×2 (06:45→16:31)
[2018-01-09 06:53] LABS: GLUCOMETER DEV NAME(LOC) BV2N3; GLUCOSE,POINT OF CARE 89 MG/DL (70-110)
[2018-01-09] MEDS: CHOLECALCIFEROL (VIT D3) 1,000 UNITS TABLET PO SCH (08:28)
[2018-01-09] MEDS: DOCUSATE SODIUM 100 MG CAPSULE PO SCH (08:28)
[2018-01-09] MEDS: OMEPRAZOLE 20 MG CAPSULE PO SCH (08:28)
[2018-01-09] MEDS: OLANZapine 5 MG TABLET PO SCH ×2 (08:28→16:06)
[2018-01-09] MEDS: BENZTROPINE MESYLATE 1 MG TABLET PO SCH ×2 (08:29→16:05)
[2018-01-09 09:29] VITALS: BP 119/79
[2018-01-09 14:17] LABS: GLUCOMETER DEV NAME(LOC) BV2N3; GLUCOSE,POINT OF CARE 94 MG/DL (70-110)
[2018-01-09] MEDS: LORazepam 2 MG TABLET PO PRN (16:06)
[2018-01-09 16:15] VITALS: BP 114/69
[2018-01-09 16:28] LABS: GLUCOMETER DEV NAME(LOC) BV2N3; GLUCOSE,POINT OF CARE 147 MG/DL (70-110)
[2018-01-09] MEDS: INSULIN REGULAR, HUMAN 100 UNITS/ML SQ PRN ×2 (17:07→20:28)
[2018-01-09 20:59] LABS: GLUCOMETER DEV NAME(LOC) BV2N3; GLUCOSE,POINT OF CARE 184 MG/DL (70-110)
[2018-01-10] MEDS: LEVOTHYROXINE SODIUM 50 MCG TABLET PO SCH (06:41)
[2018-01-10] MEDS: MetFORMIN HCL 500 MG TABLET PO SCH (07:19)
[2018-01-10 08:08] LABS: GLUCOMETER DEV NAME(LOC) BV2N3; GLUCOSE,POINT OF CARE 103 MG/DL (70-110)
[2018-01-10 08:27] VITALS: BP 102/63
[2018-01-10] MEDS: CHOLECALCIFEROL (VIT D3) 1,000 UNITS TABLET PO SCH (08:39)
[2018-01-10] MEDS: BENZTROPINE MESYLATE 1 MG TABLET PO SCH (08:39)
[2018-01-10] MEDS: OLANZapine 5 MG TABLET PO SCH (08:39)
[2018-01-10] MEDS: OMEPRAZOLE 20 MG CAPSULE PO SCH (08:39)
[2018-01-10] MEDS: DOCUSATE SODIUM 100 MG CAPSULE PO SCH (08:40)
[2018-01-10] MEDS ORDERED: OLAN7.5T2 PO (10:30)
[2018-01-10] MEDS ORDERED: OMEP20 PO (10:33)
[2018-01-10] MEDS ORDERED: DSS100 PO (10:33)
[2018-01-10 10:58] LABS: GLUCOMETER DEV NAME(LOC) BV2N3; GLUCOSE,POINT OF CARE 157 MG/DL (70-110)
== END 2018-01-10 12:50 | disposition home or self-care (01) | DRG 750 ==
LOC: EMS 08:23 → B2S 10:27
PROVIDERS: ADMIT Psychiatry & Neurology Psychiatry; ATTEND Psychiatry & Neurology Psychiatry
DX: F20.0 Paranoid schizophrenia (principal); R45.851 Suicidal ideations; E11.9 Type 2 diabetes mellitus without complications; E55.9 Vitamin D deficiency, unspecified; F41.9 Anxiety disorder, unspecified; G47.00 Insomnia, unspecified; E03.9 Hypothyroidism, unspecified; F15.10 Other stimulant abuse, uncomplicated; F17.210 Nicotine dependence, cigarettes, uncomplicated; Z79.899 Other long term (current) drug therapy; Z56.0 Unemployment, unspecified; Z59.0 Homelessness
CPT/HCPCS: 82962; 99285; G0480

== ENCOUNTER 2018-01-13 01:49 | Inpatient (IN) | payer MEDICAID, OTHER ==
[~2018-01-13] VITALS: Ht 175.3 cm; Wt 71.2 kg
[~2018-01-13 01:49] MED LIST changes: +DSS100 PO; +OLAN7.5T2 PO; +OMEP20 PO; -RISP2 PO
[2018-01-13 02:07] LABS: GLUCOSE,POINT OF CARE 102 MG/DL (70-110)
[2018-01-13 02:32] LABS: BASOPHILS % (AUTO) 0.7 % (0.0-2.0); EOSINOPHILS % (AUTO) 1.7 % (1.0-6.0); HEMATOCRIT 39.9 % (41-53); LYMPHOCYTES # (AUTO) 1.8 K/uL (1.0-4.8); LYMPHOCYTES % (AUTO) 31.7 % (22.0-44.0); MEAN CORPUSCULAR HEMOGLOBIN 30.5 pg (26.0-34.0); MEAN CORPUSCULAR VOLUME 87 fL (80-100); MONOCYTES # (AUTO) 0.6 K/uL (0.1-1.0); MONOCYTES % (AUTO) 10.3 % (2.0-9.0); NEUTROPHILS # (AUTO) 3.2 K/uL (1.8-7.7); NEUTROPHILS % (AUTO) 55.6 % (40.0-70.0); PLATELET COUNT (AUTO) 300 K/uL (150-450); RED BLOOD CELL COUNT(AUTO) 4.58 MIL/uL (4.50-5.90); RED CELL DISTRIBUTION WIDTH 12.3 % (11.5-14.5)
[2018-01-13 02:40] LABS: ANION GAP 9 mmol/L (8-16); CALCIUM, TOTAL 9.7 mg/dL (8.8-10.5); CARBON DIOXIDE 32 mmol/L (22-29); CHLORIDE 97 mmol/L (98-107); CREATININE 0.91 mg/dL (0.60-1.30); GLOMERULAR FILTR. RATE CALC > 60 mL/min (>60); GLUCOSE,RANDOM 98 mg/dL (70-110); POTASSIUM 4.2 mmol/L (3.5-5.1); SODIUM SERUM 138 mmol/L (136-145); UREA NITROGEN, BLOOD 27 mg/dL (7-18)
[2018-01-13] MEDS ORDERED: LORazepam 2 MG TABLET PO PRN (02:45)
[2018-01-13] MEDS ORDERED: HALOPERIDOL 5 MG TABLET PO PRN (02:45)
[2018-01-13] MEDS ORDERED: ZOLPIDEM TARTRATE 10 MG TABLET PO PRN (02:45)
[2018-01-13 02:46] LABS: ALANINE AMINOTRANSFERASE 34 U/L (12-78); ALBUMIN 4.5 g/dL (3.4-5.0); ALKALINE PHOSPHATASE 63 U/L (46-116); ASPARTATE AMINOTRANSFERASE 32 U/L (15-37); BILIRUBIN,TOTAL 1.8 mg/dL (0.1-1.0); TOTAL PROTEIN, SERUM 8.1 g/dL (6.4-8.2)
[2018-01-13 03:35] LABS: AMPHET/METH SCREEN,URINE POSITIVE (NEGATIVE); BARBITURATE SCREEN, URINE NEGATIVE (NEGATIVE); BENZODIAZEPINES SCREEN,URINE NEGATIVE (NEGATIVE); CANNABINOID SCREEN,URINE NEGATIVE (NEGATIVE); COCAINE SCREEN,URINE NEGATIVE (NEGATIVE); METHADONE SCREEN, URINE NEGATIVE (NEGATIVE); OPIATE SCREEN,URINE NEGATIVE (NEGATIVE)
[2018-01-13 03:36] LABS: PHENCYCLIDINE SCREEN,URINE NEGATIVE (NEGATIVE)
[2018-01-13 05:07] VITALS: BP 117/82
[2018-01-13 05:23] LABS: GLUCOMETER DEV NAME(LOC) BV2N3; GLUCOSE,POINT OF CARE 160 MG/DL (70-110)
[2018-01-13] MEDS ORDERED: PNEUMOCOCCAL VACCINE POLYVALENT 0.5 ML VIAL [PPSV23] IM ONE (05:30)
[2018-01-13] MEDS ORDERED: INFLUENZA VIRUS VACCINE QVS 2017-18 (3YR+)/PF 60 MCG/0.5 ML SYRINGE IM ONE (05:30)
[2018-01-13 08:35] VITALS: BP 109/63
[2018-01-13] MEDS ORDERED: CloNIDine HCL 0.1 MG TABLET PO PRN (10:15)
[2018-01-13] MEDS ORDERED: LOPERAMIDE HCL 2 MG CAPSULE PO PRN (10:15)
[2018-01-13] MEDS ORDERED: BACITRACIN 28.4 GM OINTMENT TP PRN (10:15)
[2018-01-13] MEDS ORDERED: BENZOCAINE/MENTHOL LOZENGE MM PRN (10:15)
[2018-01-13] MEDS ORDERED: PETROLATUM,WHITE 71 GM JELLY TP PRN (10:15)
[2018-01-13] MEDS ORDERED: IBUPROFEN 600 MG TABLET PO PRN (10:15)
[2018-01-13] MEDS ORDERED: ALBUTEROL SULFATE HFA 90 MCG/PUFF 8 GM INHALER IH PRN (10:15)
[2018-01-13] MEDS ORDERED: ONDANSETRON HCL 4 MG TABLET PO PRN (10:15)
[2018-01-13] MEDS ORDERED: ACETAMINOPHEN 325 MG TABLET PO PRN (10:15)
[2018-01-13] MEDS ORDERED: MAGNESIUM HYDROXIDE SUSPENSION 30 ML UDCUP PO PRN (10:15)
[2018-01-13] MEDS ORDERED: MAG HYDROX/AL HYDROX/SIMETH ES 30 ML SUSPENSION UDCUP PO PRN (10:15)
[2018-01-13 16:14] VITALS: BP 100/60
[2018-01-13 18:06] VITALS: BP 110/68
[2018-01-14] MEDS ORDERED: LEVOTHYROXINE SODIUM 25 MCG TABLET PO SCH (06:30)
[2018-01-14 07:25] VITALS: BP 101/70
[2018-01-14] MEDS ORDERED: VITAD1000 PO (08:57)
[2018-01-14] MEDS ORDERED: OLANZapine 7.5 MG TABLET PO SCH (09:00)
[2018-01-14] MEDS ORDERED: OMEPRAZOLE 20 MG CAPSULE PO SCH (09:00)
[2018-01-14] MEDS ORDERED: MUPIROCIN CALCIUM 2% 22 GM OINTMENT NASAL SCH (09:00)
[2018-01-14] MEDS ORDERED: DOCUSATE SODIUM 100 MG CAPSULE PO SCH (09:00)
[2018-01-14] MEDS ORDERED: BENZTROPINE MESYLATE 2 MG TABLET PO SCH (09:00)
[2018-01-14] MEDS ORDERED: CHOLECALCIFEROL (VIT D3) 1,000 UNITS TABLET PO SCH (09:00)
[2018-01-14] MEDS ORDERED: MUPI15CR TP (09:01)
[2018-01-14 09:12] VITALS: BP 100/57
== END 2018-01-14 10:49 | disposition home or self-care (01) | DRG 750 ==
LOC: EMS 01:50 → B2S 03:50
PROVIDERS: ADMIT Psychiatry & Neurology Psychiatry; ATTEND Psychiatry & Neurology Psychiatry
DX: F25.0 Schizoaffective disorder, bipolar type (principal); E11.65 Type 2 diabetes mellitus with hyperglycemia; R45.851 Suicidal ideations; F15.20 Other stimulant dependence, uncomplicated; E03.9 Hypothyroidism, unspecified; E55.9 Vitamin D deficiency, unspecified; F41.9 Anxiety disorder, unspecified; G47.00 Insomnia, unspecified; J44.9 Chronic obstructive pulmonary disease, unspecified; K21.9 Gastro-esophageal reflux disease without esophagitis; K59.00 Constipation, unspecified; R03.0 Elevated blood-pressure reading, without diagnosis of hypertension; F17.210 Nicotine dependence, cigarettes, uncomplicated; Z71.51 Drug abuse counseling and surveillance of drug abuser; Z71.6 Tobacco abuse counseling
CPT/HCPCS: 82962; 87081; G0480

== ENCOUNTER 2018-01-20 21:14 | Inpatient (IN) | payer MEDICAID ==
[~2018-01-20] VITALS: Ht 175.3 cm; Wt 73.6 kg
[~2018-01-20 21:14] MED LIST changes: -METF500T4 PO; +MUPI15CR NASAL
[2018-01-20] MEDS ORDERED: LORazepam 2 MG TABLET PO PRN (21:45)
[2018-01-20] MEDS ORDERED: ZOLPIDEM TARTRATE 10 MG TABLET PO PRN (21:45)
[2018-01-20] MEDS ORDERED: HALOPERIDOL 5 MG TABLET PO PRN (21:45)
[2018-01-20] MEDS ORDERED: PNEUMOCOCCAL VACCINE POLYVALENT 0.5 ML VIAL [PPSV23] IM ONE (22:00)
[2018-01-20] MEDS ORDERED: INFLUENZA VIRUS VACCINE QVS 2017-18 (3YR+)/PF 60 MCG/0.5 ML SYRINGE IM ONE (22:00)
[2018-01-20 22:01] VITALS: BP 146/89
[2018-01-21 00:20] VITALS: BP 133/88
[2018-01-21 07:37] LABS: BASOPHILS % (AUTO) 0.3 % (0.0-2.0); EOSINOPHILS % (AUTO) 3.1 % (1.0-6.0); HEMATOCRIT 38.5 % (41-53); HEMOGLOBIN 13.5 g/dL (13.5-17.5); LYMPHOCYTES # (AUTO) 1.8 K/uL (1.0-4.8); LYMPHOCYTES % (AUTO) 48.4 % (22.0-44.0); MEAN CORPUSCULAR HEMOGLOBIN 30.7 pg (26.0-34.0); MEAN CORPUSCULAR HGB CONC 35.2 G/dL (31.0-37.0); MEAN CORPUSCULAR VOLUME 87 fL (80-100); MONOCYTES # (AUTO) 0.4 K/uL (0.1-1.0); MONOCYTES % (AUTO) 11.3 % (2.0-9.0); NEUTROPHILS # (AUTO) 1.4 K/uL (1.8-7.7); NEUTROPHILS % (AUTO) 36.9 % (40.0-70.0); PLATELET COUNT (AUTO) 292 K/uL (150-450); RED BLOOD CELL COUNT(AUTO) 4.41 MIL/uL (4.50-5.90); RED CELL DISTRIBUTION WIDTH 12.7 % (11.5-14.5)
[2018-01-21 07:55] LABS: HEMOGLOBIN A1C 5.7 % (4.5-6.2)
[2018-01-21 08:00] VITALS: BP 125/85
[2018-01-21 08:00] LABS: ALANINE AMINOTRANSFERASE 31 U/L (12-78); ALBUMIN 3.7 g/dL (3.4-5.0); ALKALINE PHOSPHATASE 51 U/L (46-116); ANION GAP 7 mmol/L (8-16); ASPARTATE AMINOTRANSFERASE 23 U/L (15-37); BILIRUBIN,TOTAL 1.4 mg/dL (0.1-1.0); CALCIUM, TOTAL 9.1 mg/dL (8.8-10.5); CARBON DIOXIDE 30 mmol/L (22-29); CHLORIDE 102 mmol/L (98-107); CHOL/HDL RATIO 2.6 (4.2-7.3); CHOLESTEROL 196 mg/dL (131-200); CREATININE 0.75 mg/dL (0.60-1.30); FREE T4 (FREE THYROXINE) 0.94 ng/dL (0.76-1.46); GLOMERULAR FILTR. RATE CALC > 60 mL/min (>60); GLUCOSE,RANDOM 93 mg/dL (70-110); HDL CHOLESTEROL 76 mg/dL (40-60); LDL CHOL (CALC.) 112 mg/dL (0-130); POTASSIUM 3.6 mmol/L (3.5-5.1); SODIUM SERUM 139 mmol/L (136-145); THYROID STIMULATING HORMONE 1.94 uIU/mL (0.36-3.74); TRIGLYCERIDES 40 mg/dL (15-150); UREA NITROGEN, BLOOD 15 mg/dL (7-18)
[2018-01-21] MEDS ORDERED: CloNIDine HCL 0.1 MG TABLET PO PRN (09:45)
[2018-01-21] MEDS ORDERED: IBUPROFEN 600 MG TABLET PO PRN (09:45)
[2018-01-21] MEDS ORDERED: MAG HYDROX/AL HYDROX/SIMETH ES 30 ML SUSPENSION UDCUP PO PRN (09:45)
[2018-01-21] MEDS ORDERED: LOPERAMIDE HCL 2 MG CAPSULE PO PRN (09:45)
[2018-01-21] MEDS ORDERED: ONDANSETRON HCL 4 MG TABLET PO PRN (09:45)
[2018-01-21] MEDS ORDERED: BACITRACIN 28.4 GM OINTMENT TP PRN (09:45)
[2018-01-21] MEDS ORDERED: PETROLATUM,WHITE 71 GM JELLY TP PRN (09:45)
[2018-01-21] MEDS ORDERED: BENZOCAINE/MENTHOL LOZENGE [8 LOZENGES/PACKET] MM PRN (09:45)
[2018-01-21] MEDS ORDERED: MAGNESIUM HYDROXIDE SUSPENSION 30 ML UDCUP PO PRN (09:45)
[2018-01-21] MEDS ORDERED: ACETAMINOPHEN 325 MG TABLET PO PRN (09:45)
[2018-01-21] MEDS ORDERED: ALBUTEROL SULFATE HFA 90 MCG/PUFF 8 GM INHALER IH PRN (09:45)
[2018-01-21] MEDS ORDERED: LEVO50 PO (15:29)
[2018-01-21] MEDS: OLANZapine 7.5 MG TABLET PO SCH (15:55)
[2018-01-21] MEDS: BENZTROPINE MESYLATE 2 MG TABLET PO SCH (15:55)
[2018-01-21 23:13] VITALS: BP 108/68
[2018-01-22] MEDS: LEVOTHYROXINE SODIUM 25 MCG TABLET PO SCH (07:00)
[2018-01-22] MEDS: DOCUSATE SODIUM 100 MG CAPSULE PO SCH (09:17)
[2018-01-22] MEDS: OMEPRAZOLE 20 MG CAPSULE PO SCH (09:17)
[2018-01-22] MEDS: BENZTROPINE MESYLATE 2 MG TABLET PO SCH ×2 (09:17→16:56)
[2018-01-22] MEDS: OLANZapine 7.5 MG TABLET PO SCH ×2 (09:17→16:56)
[2018-01-22 13:51] VITALS: BP 124/79
[2018-01-22 16:20] VITALS: BP 127/68
[2018-01-22] MEDS: MUPIROCIN CALCIUM 2% 22 GM OINTMENT NASAL SCH (16:56)
[2018-01-23] MEDS: LEVOTHYROXINE SODIUM 25 MCG TABLET PO SCH (06:55)
[2018-01-23 08:44] VITALS: BP 154/72
[2018-01-23] MEDS: OLANZapine 7.5 MG TABLET PO SCH ×2 (08:48→16:39)
[2018-01-23] MEDS: OMEPRAZOLE 20 MG CAPSULE PO SCH (08:48)
[2018-01-23] MEDS: MUPIROCIN CALCIUM 2% 22 GM OINTMENT NASAL SCH ×2 (08:48→16:39)
[2018-01-23] MEDS: DOCUSATE SODIUM 100 MG CAPSULE PO SCH (08:48)
[2018-01-23] MEDS: BENZTROPINE MESYLATE 2 MG TABLET PO SCH ×2 (08:48→16:39)
[2018-01-23] MEDS: MetFORMIN HCL 500 MG TABLET PO SCH (16:39)
[2018-01-23 18:47] VITALS: BP 132/67
[2018-01-24] MEDS: MetFORMIN HCL 500 MG TABLET PO SCH (06:50)
[2018-01-24] MEDS: LEVOTHYROXINE SODIUM 25 MCG TABLET PO SCH (06:50)
[2018-01-24 08:42] VITALS: BP 103/72
[2018-01-24] MEDS: DOCUSATE SODIUM 100 MG CAPSULE PO SCH (09:49)
[2018-01-24] MEDS: BENZTROPINE MESYLATE 2 MG TABLET PO SCH (09:50)
[2018-01-24] MEDS: MUPIROCIN CALCIUM 2% 22 GM OINTMENT NASAL SCH (09:50)
[2018-01-24] MEDS: OMEPRAZOLE 20 MG CAPSULE PO SCH (09:50)
[2018-01-24] MEDS: OLANZapine 7.5 MG TABLET PO SCH (09:50)
[2018-01-24] MEDS ORDERED: METF500T4 PO (12:14)
[2018-01-24] MEDS ORDERED: LEVO25TA9 PO (12:14)
== END 2018-01-24 12:30 | disposition home or self-care (01) | DRG 750 ==
LOC: B3A 21:33 → EDSTATUS 21:35 → 3EC 22:31
PROVIDERS: ADMIT Psychiatry & Neurology Psychiatry; ATTEND Psychiatry & Neurology Psychiatry
DX: F25.0 Schizoaffective disorder, bipolar type (principal); R45.851 Suicidal ideations; E11.9 Type 2 diabetes mellitus without complications; Z28.21 Immunization not carried out because of patient refusal; E03.9 Hypothyroidism, unspecified; E55.9 Vitamin D deficiency, unspecified; F15.10 Other stimulant abuse, uncomplicated; F17.200 Nicotine dependence, unspecified, uncomplicated; F41.9 Anxiety disorder, unspecified; G47.00 Insomnia, unspecified; J44.9 Chronic obstructive pulmonary disease, unspecified; K21.9 Gastro-esophageal reflux disease without esophagitis; R03.0 Elevated blood-pressure reading, without diagnosis of hypertension
CPT/HCPCS: 83036; 84439; 84443; 87081; 99285

== ENCOUNTER 2018-02-02 14:08 | Inpatient (IN) | payer MEDICAID ==
[~2018-02-02] VITALS: Ht 175.3 cm; Wt 72.6 kg
[~2018-02-02 14:08] MED LIST changes: +METF500T4 PO
[2018-02-02] MEDS ORDERED: HALOPERIDOL 5 MG TABLET PO PRN (17:00)
[2018-02-02] MEDS ORDERED: LORazepam 2 MG TABLET PO PRN (17:00)
[2018-02-02] MEDS ORDERED: ZOLPIDEM TARTRATE 10 MG TABLET PO PRN (17:00)
[2018-02-02 17:45] VITALS: BP 135/90
[2018-02-02] MEDS ORDERED: INFLUENZA VIRUS VACCINE QVS 2017-18 (3YR+)/PF 60 MCG/0.5 ML SYRINGE IM ONE ×2 (19:30→21:00)
[2018-02-02 20:15] VITALS: BP 125/74
[2018-02-03] MEDS: LEVOTHYROXINE SODIUM 25 MCG TABLET PO SCH ×2 (06:34→06:38)
[2018-02-03] MEDS: MetFORMIN HCL 500 MG TABLET PO SCH ×2 (06:38→17:21)
[2018-02-03 08:30] VITALS: BP 138/84
[2018-02-03] MEDS: OMEPRAZOLE 20 MG CAPSULE PO SCH (09:27)
[2018-02-03] MEDS: DOCUSATE SODIUM 100 MG CAPSULE PO SCH (09:28)
[2018-02-03] MEDS: BENZTROPINE MESYLATE 2 MG TABLET PO SCH ×2 (09:28→16:29)
[2018-02-03] MEDS: OLANZapine 7.5 MG TABLET PO SCH ×2 (09:29→16:29)
[2018-02-03 16:47] VITALS: BP 119/78
[2018-02-03] MEDS ORDERED: PETROLATUM,WHITE 71 GM JELLY TP PRN (22:00)
[2018-02-03] MEDS ORDERED: ACETAMINOPHEN 325 MG TABLET PO PRN (22:00)
[2018-02-03] MEDS ORDERED: MAG HYDROX/AL HYDROX/SIMETH ES 30 ML SUSPENSION UDCUP PO PRN (22:00)
[2018-02-03] MEDS ORDERED: ALBUTEROL SULFATE HFA 90 MCG/PUFF 8 GM INHALER IH PRN (22:00)
[2018-02-03] MEDS ORDERED: BACITRACIN 28.4 GM OINTMENT TP PRN (22:00)
[2018-02-03] MEDS ORDERED: CloNIDine HCL 0.1 MG TABLET PO PRN (22:00)
[2018-02-03] MEDS ORDERED: IBUPROFEN 600 MG TABLET PO PRN (22:00)
[2018-02-03] MEDS ORDERED: MAGNESIUM HYDROXIDE SUSPENSION 30 ML UDCUP PO PRN (22:00)
[2018-02-03] MEDS ORDERED: ONDANSETRON HCL 4 MG TABLET PO PRN (22:00)
[2018-02-03] MEDS ORDERED: LOPERAMIDE HCL 2 MG CAPSULE PO PRN (22:00)
[2018-02-03] MEDS ORDERED: BENZOCAINE/MENTHOL LOZENGE [8 LOZENGES/PACKET] MM PRN (22:15)
[2018-02-04] MEDS: LEVOTHYROXINE SODIUM 25 MCG TABLET PO SCH (06:38)
[2018-02-04] MEDS: MetFORMIN HCL 500 MG TABLET PO SCH ×2 (06:38→17:25)
[2018-02-04 08:48] VITALS: BP 129/80
[2018-02-04] MEDS: OMEPRAZOLE 20 MG CAPSULE PO SCH ×2 (09:00→11:20)
[2018-02-04] MEDS: OLANZapine 7.5 MG TABLET PO SCH ×2 (11:20→17:25)
[2018-02-04] MEDS: DOCUSATE SODIUM 100 MG CAPSULE PO SCH (11:20)
[2018-02-04] MEDS: BENZTROPINE MESYLATE 2 MG TABLET PO SCH ×2 (11:20→17:25)
[2018-02-04] MEDS: CHOLECALCIFEROL (VIT D3) 1,000 UNITS TABLET PO SCH (11:20)
[2018-02-04 16:30] VITALS: BP 104/62
[2018-02-05] MEDS: LEVOTHYROXINE SODIUM 25 MCG TABLET PO SCH (06:53)
[2018-02-05] MEDS: MetFORMIN HCL 500 MG TABLET PO SCH ×2 (06:53→17:03)
[2018-02-05 08:24] VITALS: BP 126/86
[2018-02-05] MEDS: BENZTROPINE MESYLATE 2 MG TABLET PO SCH ×2 (08:43→17:03)
[2018-02-05] MEDS: OLANZapine 7.5 MG TABLET PO SCH ×2 (08:43→17:03)
[2018-02-05] MEDS: OMEPRAZOLE 20 MG CAPSULE PO SCH (08:43)
[2018-02-05] MEDS: DOCUSATE SODIUM 100 MG CAPSULE PO SCH (08:43)
[2018-02-05] MEDS: CHOLECALCIFEROL (VIT D3) 1,000 UNITS TABLET PO SCH (08:43)
[2018-02-05 16:41] VITALS: BP 131/82
[2018-02-06] MEDS: MetFORMIN HCL 500 MG TABLET PO SCH ×2 (06:40→17:36)
[2018-02-06] MEDS: LEVOTHYROXINE SODIUM 25 MCG TABLET PO SCH (06:40)
[2018-02-06] MEDS: DOCUSATE SODIUM 100 MG CAPSULE PO SCH (09:46)
[2018-02-06] MEDS: BENZTROPINE MESYLATE 2 MG TABLET PO SCH ×2 (09:46→17:36)
[2018-02-06] MEDS: OLANZapine 7.5 MG TABLET PO SCH ×2 (09:46→17:36)
[2018-02-06] MEDS: CHOLECALCIFEROL (VIT D3) 1,000 UNITS TABLET PO SCH (09:46)
[2018-02-06] MEDS: OMEPRAZOLE 20 MG CAPSULE PO SCH (09:46)
[2018-02-06 10:22] VITALS: BP 118/77
[2018-02-06 16:38] VITALS: BP 132/78
[2018-02-07] MEDS: MetFORMIN HCL 500 MG TABLET PO SCH ×2 (06:47→16:28)
[2018-02-07] MEDS: LEVOTHYROXINE SODIUM 25 MCG TABLET PO SCH (06:47)
[2018-02-07] MEDS ORDERED: DEXTROSE 50%-WATER 25 GM/50 ML SYRINGE IVP PRN (08:45)
[2018-02-07] MEDS ORDERED: INSULIN LISPRO 100 UNITS/ML SQ PRN (08:45)
[2018-02-07 09:12] VITALS: BP 130/89
[2018-02-07] MEDS: OMEPRAZOLE 20 MG CAPSULE PO SCH (10:43)
[2018-02-07] MEDS: BENZTROPINE MESYLATE 2 MG TABLET PO SCH ×2 (10:43→16:29)
[2018-02-07] MEDS: OLANZapine 7.5 MG TABLET PO SCH ×2 (10:43→16:28)
[2018-02-07] MEDS: CHOLECALCIFEROL (VIT D3) 1,000 UNITS TABLET PO SCH (10:43)
[2018-02-07] MEDS: DOCUSATE SODIUM 100 MG CAPSULE PO SCH (10:43)
[2018-02-07 11:48] LABS: GLUCOMETER DEV NAME(LOC) 3EI B; GLUCOSE,POINT OF CARE 118 MG/DL (70-110)
[2018-02-07] MEDS ORDERED: CHOL100062 PO (16:25)
== END 2018-02-07 17:00 | disposition home or self-care (01) | DRG 750 ==
LOC: 3EI 16:55
PROVIDERS: ADMIT Psychiatry & Neurology Psychiatry; ATTEND Psychiatry & Neurology Psychiatry
DX: F25.0 Schizoaffective disorder, bipolar type (principal); E11.65 Type 2 diabetes mellitus with hyperglycemia; R45.851 Suicidal ideations; F15.20 Other stimulant dependence, uncomplicated; E03.9 Hypothyroidism, unspecified; E55.9 Vitamin D deficiency, unspecified; F41.9 Anxiety disorder, unspecified; G47.00 Insomnia, unspecified; K21.9 Gastro-esophageal reflux disease without esophagitis; K59.00 Constipation, unspecified; F17.200 Nicotine dependence, unspecified, uncomplicated; Z91.19 Patient's noncompliance with other medical treatment and regimen; Z79.899 Other long term (current) drug therapy; Z71.51 Drug abuse counseling and surveillance of drug abuser; Z71.6 Tobacco abuse counseling; Z91.5 Personal history of self-harm
CPT/HCPCS: 82962; 87081

== ENCOUNTER 2018-02-15 21:48 | Emergency (ER) | payer MEDICAID ==
[~2018-02-15] VITALS: Ht 175.3 cm; Wt 75.0 kg
[~2018-02-15 21:48] MED LIST changes: +CHOL100062 PO; -MUPI15CR NASAL
[2018-02-15 22:07] LABS: GLUCOSE,POINT OF CARE 187 MG/DL (70-110)
[2018-02-15 22:19] LABS: BASOPHILS % (AUTO) 0.6 % (0.0-2.0); EOSINOPHILS % (AUTO) 1.4 % (1.0-6.0); HEMATOCRIT 37.8 % (41-53); HEMOGLOBIN 13.3 g/dL (13.5-17.5); LYMPHOCYTES # (AUTO) 2.3 K/uL (1.0-4.8); LYMPHOCYTES % (AUTO) 31.7 % (22.0-44.0); MEAN CORPUSCULAR HEMOGLOBIN 30.4 pg (26.0-34.0); MEAN CORPUSCULAR VOLUME 87 fL (80-100); MONOCYTES # (AUTO) 0.6 K/uL (0.1-1.0); MONOCYTES % (AUTO) 8.7 % (2.0-9.0); NEUTROPHILS # (AUTO) 4.1 K/uL (1.8-7.7); NEUTROPHILS % (AUTO) 57.6 % (40.0-70.0); PLATELET COUNT (AUTO) 361 K/uL (150-450); RED BLOOD CELL COUNT(AUTO) 4.35 MIL/uL (4.50-5.90); RED CELL DISTRIBUTION WIDTH 12.9 % (11.5-14.5)
[2018-02-15 22:31] LABS: ANION GAP 7 mmol/L (8-16); CALCIUM, TOTAL 8.7 mg/dL (8.8-10.5); CARBON DIOXIDE 30 mmol/L (22-29); CHLORIDE 104 mmol/L (98-107); CREATININE 0.95 mg/dL (0.60-1.30); GLOMERULAR FILTR. RATE CALC > 60 mL/min (>60); GLUCOSE,RANDOM 136 mg/dL (70-110); POTASSIUM 3.6 mmol/L (3.5-5.1); SODIUM SERUM 141 mmol/L (136-145); UREA NITROGEN, BLOOD 19 mg/dL (7-18)
[2018-02-15 22:34] LABS: ALANINE AMINOTRANSFERASE 31 U/L (12-78); ALBUMIN 3.6 g/dL (3.4-5.0); ALKALINE PHOSPHATASE 56 U/L (46-116); ASPARTATE AMINOTRANSFERASE 26 U/L (15-37); BILIRUBIN,TOTAL 0.7 mg/dL (0.1-1.0); TOTAL PROTEIN, SERUM 6.9 g/dL (6.4-8.2)
[2018-02-16 01:30] LABS: AMPHET/METH SCREEN,URINE POSITIVE (NEGATIVE); BARBITURATE SCREEN, URINE NEGATIVE (NEGATIVE); BENZODIAZEPINES SCREEN,URINE NEGATIVE (NEGATIVE); CANNABINOID SCREEN,URINE NEGATIVE (NEGATIVE); COCAINE SCREEN,URINE NEGATIVE (NEGATIVE); METHADONE SCREEN, URINE NEGATIVE (NEGATIVE); OPIATE SCREEN,URINE NEGATIVE (NEGATIVE)
[2018-02-16 01:37] LABS: PHENCYCLIDINE SCREEN,URINE NEGATIVE (NEGATIVE)
[2018-02-16] MEDS ORDERED: HALOPERIDOL 5 MG TABLET PO ONE (02:15)
[2018-02-16] MEDS ORDERED: LORazepam 2 MG TABLET PO ONE (02:15)
[2018-02-16 05:38] VITALS: BP 119/75
== END 2018-02-16 06:46 | disposition home or self-care (01) ==
LOC: EMS 21:49
DX: F25.9 Schizoaffective disorder, unspecified (principal); E11.9 Type 2 diabetes mellitus without complications; F17.210 Nicotine dependence, cigarettes, uncomplicated
CPT/HCPCS: 36415; 80053; 80307; 82962; 85025; 99284; G0480

== ENCOUNTER 2018-03-17 19:15 | Inpatient (IN) | payer MEDICAID ==
[~2018-03-17] VITALS: Ht 175.3 cm; Wt 73.5 kg
[~2018-03-17 19:15] MED LIST changes: -METF500T4 PO; +METF500T6 PO
[2018-03-17 19:47] LABS: GLUCOSE,POINT OF CARE 117 MG/DL (70-110)
[2018-03-17 20:01] LABS: AMPHET/METH SCREEN,URINE NEGATIVE (NEGATIVE); BARBITURATE SCREEN, URINE NEGATIVE (NEGATIVE); BENZODIAZEPINES SCREEN,URINE NEGATIVE (NEGATIVE); CANNABINOID SCREEN,URINE NEGATIVE (NEGATIVE); COCAINE SCREEN,URINE NEGATIVE (NEGATIVE); METHADONE SCREEN, URINE NEGATIVE (NEGATIVE); OPIATE SCREEN,URINE NEGATIVE (NEGATIVE)
[2018-03-17 20:03] LABS: BASOPHILS % (AUTO) 0.7 % (0.0-2.0); HEMATOCRIT 36.1 % (41-53); HEMOGLOBIN 12.8 g/dL (13.5-17.5); LYMPHOCYTES # (AUTO) 1.8 K/uL (1.0-4.8); LYMPHOCYTES % (AUTO) 42.2 % (22.0-44.0); MEAN CORPUSCULAR HEMOGLOBIN 31.2 pg (26.0-34.0); MEAN CORPUSCULAR HGB CONC 35.6 G/dL (31.0-37.0); MEAN CORPUSCULAR VOLUME 88 fL (80-100); MONOCYTES # (AUTO) 0.3 K/uL (0.1-1.0); MONOCYTES % (AUTO) 7.6 % (2.0-9.0); NEUTROPHILS % (AUTO) 47.5 % (40.0-70.0); PLATELET COUNT (AUTO) 357 K/uL (150-450); RED BLOOD CELL COUNT(AUTO) 4.11 MIL/uL (4.50-5.90); RED CELL DISTRIBUTION WIDTH 13.2 % (11.5-14.5)
[2018-03-17 20:11] LABS: PHENCYCLIDINE SCREEN,URINE NEGATIVE (NEGATIVE)
[2018-03-17 20:14] LABS: ANION GAP 7 mmol/L (8-16); CALCIUM, TOTAL 8.7 mg/dL (8.8-10.5); CARBON DIOXIDE 29 mmol/L (22-29); CHLORIDE 101 mmol/L (98-107); CREATININE 0.92 mg/dL (0.60-1.30); GLOMERULAR FILTR. RATE CALC > 60 mL/min (>60); GLUCOSE,RANDOM 117 mg/dL (70-110); POTASSIUM 3.8 mmol/L (3.5-5.1); SODIUM SERUM 137 mmol/L (136-145); UREA NITROGEN, BLOOD 18 mg/dL (7-18)
[2018-03-17 20:20] LABS: ALANINE AMINOTRANSFERASE 41 U/L (12-78); ALBUMIN 3.5 g/dL (3.4-5.0); ALKALINE PHOSPHATASE 75 U/L (46-116); ASPARTATE AMINOTRANSFERASE 23 U/L (15-37); BILIRUBIN,TOTAL 0.3 mg/dL (0.1-1.0); TOTAL PROTEIN, SERUM 6.9 g/dL (6.4-8.2)
[2018-03-17] MEDS ORDERED: ZOLPIDEM TARTRATE 10 MG TABLET PO PRN (21:15)
[2018-03-17] MEDS ORDERED: OLANZapine 5 MG TABLET PO PRN (21:15)
[2018-03-17] MEDS ORDERED: CEPH500 PO (21:31)
[2018-03-17] MEDS ORDERED: IBUP-2070 PO (21:31)
[2018-03-17] MEDS ORDERED: IBUPROFEN 600 MG TABLET PO ONE (21:45)
[2018-03-18 16:32] VITALS: BP 127/79
[2018-03-18 17:27] LABS: GLUCOMETER DEV NAME(LOC) BV3N5; GLUCOSE,POINT OF CARE 193 MG/DL (70-110)
[2018-03-19 06:53] VITALS: BP 112/64
[2018-03-19] MEDS: CEPHALEXIN MONOHYDRATE 500 MG CAPSULE PO SCH ×4 (08:04→21:00)
[2018-03-19 08:14] VITALS: BP 124/73
[2018-03-19] MEDS: BENZTROPINE MESYLATE 2 MG TABLET PO SCH ×2 (10:22→16:57)
[2018-03-19] MEDS: OLANZapine 10 MG TABLET PO SCH ×2 (10:22→16:58)
[2018-03-19] MEDS ORDERED: GLUCAGON,HUMAN RECOMBINANT 1 MG VIAL IM PRN (10:30)
[2018-03-19] MEDS: INSULIN LISPRO 100 UNITS/ML SQ PRN ×2 (11:13→17:26)
[2018-03-19 11:22] LABS: GLUCOMETER DEV NAME(LOC) BV3N5; GLUCOSE,POINT OF CARE 182 MG/DL (70-110)
[2018-03-19 16:05] VITALS: BP 119/70
[2018-03-19 16:32] LABS: GLUCOMETER DEV NAME(LOC) BV3N5; GLUCOSE,POINT OF CARE 247 MG/DL (70-110)
[2018-03-19] MEDS: LORazepam 2 MG TABLET PO PRN (17:15)
[2018-03-19] MEDS ORDERED: CloNIDine HCL 0.1 MG TABLET PO PRN (17:45)
[2018-03-19] MEDS ORDERED: MAG HYDROX/AL HYDROX/SIMETH ES 30 ML SUSPENSION UDCUP PO PRN (17:45)
[2018-03-19] MEDS ORDERED: ACETAMINOPHEN 325 MG TABLET PO PRN (17:45)
[2018-03-19] MEDS ORDERED: IBUPROFEN 600 MG TABLET PO PRN (17:45)
[2018-03-19] MEDS ORDERED: ALBUTEROL SULFATE HFA 90 MCG/PUFF 8 GM INHALER IH PRN (17:45)
[2018-03-19] MEDS ORDERED: LOPERAMIDE HCL 2 MG CAPSULE PO PRN (17:45)
[2018-03-19] MEDS ORDERED: BENZOCAINE/MENTHOL LOZENGE MM PRN (17:45)
[2018-03-19] MEDS ORDERED: BACITRACIN 28.4 GM OINTMENT TP PRN (17:45)
[2018-03-19] MEDS ORDERED: ONDANSETRON HCL 4 MG TABLET PO PRN (17:45)
[2018-03-19] MEDS ORDERED: PETROLATUM,WHITE 71 GM JELLY TP PRN (17:45)
[2018-03-19] MEDS ORDERED: MAGNESIUM HYDROXIDE SUSPENSION 30 ML UDCUP PO PRN (17:45)
[2018-03-20 06:33] LABS: GLUCOMETER DEV NAME(LOC) BV3N5; GLUCOSE,POINT OF CARE 128 MG/DL (70-110)
[2018-03-20 06:38] VITALS: BP 107/70
[2018-03-20 08:35] VITALS: BP 106/61
[2018-03-20] MEDS: CEPHALEXIN MONOHYDRATE 500 MG CAPSULE PO SCH ×4 (08:42→20:38)
[2018-03-20] MEDS: DOCUSATE SODIUM 100 MG CAPSULE PO SCH (08:42)
[2018-03-20] MEDS: LORazepam 2 MG TABLET PO PRN ×2 (08:42→18:14)
[2018-03-20] MEDS: OMEPRAZOLE 20 MG CAPSULE PO SCH (08:43)
[2018-03-20] MEDS: BENZTROPINE MESYLATE 2 MG TABLET PO SCH ×2 (08:43→17:00)
[2018-03-20] MEDS: OLANZapine 10 MG TABLET PO SCH ×2 (08:43→17:00)
[2018-03-20 11:57] LABS: GLUCOMETER DEV NAME(LOC) BV3N5; GLUCOSE,POINT OF CARE 131 MG/DL (70-110)
[2018-03-20] MEDS: FLUoxetine HCL 20 MG CAPSULE PO SCH (12:01)
[2018-03-20 16:17] VITALS: BP 105/68
[2018-03-20 16:58] LABS: GLUCOMETER DEV NAME(LOC) BV3N5; GLUCOSE,POINT OF CARE 144 MG/DL (70-110)
[2018-03-20] MEDS: INSULIN LISPRO 100 UNITS/ML SQ PRN ×2 (17:36→20:41)
[2018-03-20 20:47] LABS: GLUCOMETER DEV NAME(LOC) BV3N5; GLUCOSE,POINT OF CARE 191 MG/DL (70-110)
[2018-03-21 06:18] LABS: GLUCOMETER DEV NAME(LOC) BV3N5; GLUCOSE,POINT OF CARE 123 MG/DL (70-110)
[2018-03-21 06:32] VITALS: BP 104/63
[2018-03-21 08:01] VITALS: BP 117/62
[2018-03-21] MEDS: OMEPRAZOLE 20 MG CAPSULE PO SCH (08:42)
[2018-03-21] MEDS: DOCUSATE SODIUM 100 MG CAPSULE PO SCH (08:42)
[2018-03-21] MEDS: OLANZapine 10 MG TABLET PO SCH ×2 (08:42→16:35)
[2018-03-21] MEDS: BENZTROPINE MESYLATE 2 MG TABLET PO SCH ×2 (08:43→16:34)
[2018-03-21] MEDS: FLUoxetine HCL 20 MG CAPSULE PO SCH (08:43)
[2018-03-21] MEDS: CEPHALEXIN MONOHYDRATE 500 MG CAPSULE PO SCH ×4 (08:43→20:51)
[2018-03-21] MEDS: INSULIN LISPRO 100 UNITS/ML SQ PRN ×3 (11:27→20:52)
[2018-03-21 11:52] LABS: GLUCOMETER DEV NAME(LOC) BV3N5; GLUCOSE,POINT OF CARE 145 MG/DL (70-110)
[2018-03-21 16:05] VITALS: BP 109/68
[2018-03-21] MEDS: LORazepam 2 MG TABLET PO PRN ×2 (16:35→20:51)
[2018-03-21 16:43] LABS: GLUCOMETER DEV NAME(LOC) BV3N5; GLUCOSE,POINT OF CARE 178 MG/DL (70-110)
[2018-03-21 20:57] LABS: GLUCOMETER DEV NAME(LOC) BV3N5; GLUCOSE,POINT OF CARE 166 MG/DL (70-110)
[2018-03-22 06:28] LABS: GLUCOMETER DEV NAME(LOC) BV3N5; GLUCOSE,POINT OF CARE 111 MG/DL (70-110)
[2018-03-22] MEDS: MetFORMIN HCL 500 MG TABLET PO SCH ×2 (06:32→16:42)
[2018-03-22 06:37] VITALS: BP 116/88
[2018-03-22 08:12] VITALS: BP 105/62
[2018-03-22] MEDS: DOCUSATE SODIUM 100 MG CAPSULE PO SCH (09:00)
[2018-03-22] MEDS: OMEPRAZOLE 20 MG CAPSULE PO SCH (09:00)
[2018-03-22] MEDS: FLUoxetine HCL 20 MG CAPSULE PO SCH (09:00)
[2018-03-22] MEDS: BENZTROPINE MESYLATE 2 MG TABLET PO SCH ×2 (09:47→16:42)
[2018-03-22] MEDS: OLANZapine 10 MG TABLET PO SCH ×2 (09:47→16:42)
[2018-03-22] MEDS: CEPHALEXIN MONOHYDRATE 500 MG CAPSULE PO SCH ×4 (09:47→20:55)
[2018-03-22 11:42] LABS: GLUCOMETER DEV NAME(LOC) BV3N5; GLUCOSE,POINT OF CARE 166 MG/DL (70-110)
[2018-03-22] MEDS: INSULIN LISPRO 100 UNITS/ML SQ PRN ×2 (12:20→16:43)
[2018-03-22] MEDS: LORazepam 2 MG TABLET PO PRN ×2 (13:38→19:09)
[2018-03-22 16:02] VITALS: BP 107/64
[2018-03-22 17:22] LABS: GLUCOMETER DEV NAME(LOC) BV3N5; GLUCOSE,POINT OF CARE 161 MG/DL (70-110)
[2018-03-23] MEDS: MetFORMIN HCL 500 MG TABLET PO SCH (06:32)
[2018-03-23 06:48] LABS: GLUCOMETER DEV NAME(LOC) BV3N5; GLUCOSE,POINT OF CARE 106 MG/DL (70-110)
[2018-03-23 06:54] VITALS: BP 112/65
[2018-03-23 08:00] VITALS: BP 111/63
[2018-03-23] MEDS: CEPHALEXIN MONOHYDRATE 500 MG CAPSULE PO SCH (08:42)
[2018-03-23] MEDS: FLUoxetine HCL 20 MG CAPSULE PO SCH (08:42)
[2018-03-23] MEDS: OMEPRAZOLE 20 MG CAPSULE PO SCH (08:42)
[2018-03-23] MEDS: OLANZapine 10 MG TABLET PO SCH (08:43)
[2018-03-23] MEDS: DOCUSATE SODIUM 100 MG CAPSULE PO SCH (08:43)
[2018-03-23] MEDS: BENZTROPINE MESYLATE 2 MG TABLET PO SCH (09:00)
== END 2018-03-23 12:00 | disposition home or self-care (01) | DRG 750 ==
LOC: EMS 19:15 → B3A 03-18 13:59
PROVIDERS: ADMIT Psychiatry & Neurology Psychiatry; ATTEND Psychiatry & Neurology Psychiatry
DX: F25.9 Schizoaffective disorder, unspecified (principal); E11.65 Type 2 diabetes mellitus with hyperglycemia; R45.851 Suicidal ideations; E03.9 Hypothyroidism, unspecified; E55.9 Vitamin D deficiency, unspecified; L03.032 Cellulitis of left toe; F15.10 Other stimulant abuse, uncomplicated; F17.200 Nicotine dependence, unspecified, uncomplicated; F41.9 Anxiety disorder, unspecified; G47.00 Insomnia, unspecified; J44.9 Chronic obstructive pulmonary disease, unspecified; K21.9 Gastro-esophageal reflux disease without esophagitis; Z59.0 Homelessness; Z79.899 Other long term (current) drug therapy; Z79.84 Long term (current) use of oral hypoglycemic drugs
CPT/HCPCS: 99285; G0480

== ENCOUNTER 2018-03-31 16:21 | Inpatient (IN) | payer MEDICAID ==
[~2018-03-31] VITALS: Ht 175.3 cm; Wt 72.6 kg
[~2018-03-31 16:21] MED LIST changes: +CEPH500 PO; -CHOL100062 PO; -LEVO25TA9 PO
[2018-03-31] MEDS ORDERED: ZOLPIDEM TARTRATE 10 MG TABLET PO PRN (16:45)
[2018-03-31] MEDS ORDERED: HALOPERIDOL 5 MG TABLET PO PRN (16:45)
[2018-03-31] MEDS ORDERED: LORazepam 2 MG/ML VIAL ONE (17:19)
[2018-03-31] MEDS ORDERED: HALOPERIDOL LACTATE 5 MG/ML VIAL ONE (17:19)
[2018-03-31] MEDS ORDERED: DiphenhydrAMINE HCL 50 MG/ML VIAL ONE (17:19)
[2018-03-31] MEDS: BENZTROPINE MESYLATE 2 MG TABLET PO SCH (17:26)
[2018-03-31] MEDS: OLANZapine 10 MG TABLET PO SCH (17:26)
[2018-03-31 18:00] VITALS: BP 131/75
[2018-03-31] MEDS ORDERED: PNEUMOCOCCAL VACCINE POLYVALENT 0.5 ML VIAL [PPSV23] IM ONE (18:00)
[2018-03-31] MEDS ORDERED: LORazepam 2 MG/ML VIAL IM ONE (18:00)
[2018-03-31] MEDS ORDERED: DiphenhydrAMINE HCL 50 MG/ML VIAL IM ONE (18:00)
[2018-03-31] MEDS ORDERED: HALOPERIDOL LACTATE 5 MG/ML VIAL IM ONE (18:00)
[2018-03-31] MEDS ORDERED: BACITRACIN 28.4 GM OINTMENT TP PRN (19:15)
[2018-03-31] MEDS ORDERED: LOPERAMIDE HCL 2 MG CAPSULE PO PRN (19:15)
[2018-03-31] MEDS ORDERED: ONDANSETRON HCL 4 MG TABLET PO PRN (19:15)
[2018-03-31] MEDS ORDERED: ACETAMINOPHEN 325 MG TABLET PO PRN (19:15)
[2018-03-31] MEDS ORDERED: GLUCAGON,HUMAN RECOMBINANT 1 MG VIAL IM PRN (19:15)
[2018-03-31] MEDS ORDERED: ALBUTEROL SULFATE HFA 90 MCG/PUFF 8 GM INHALER IH PRN (19:15)
[2018-03-31] MEDS ORDERED: CloNIDine HCL 0.1 MG TABLET PO PRN (19:15)
[2018-03-31] MEDS ORDERED: MAGNESIUM HYDROXIDE SUSPENSION 30 ML UDCUP PO PRN (19:15)
[2018-03-31] MEDS ORDERED: BENZOCAINE/MENTHOL LOZENGE MM PRN (19:15)
[2018-03-31] MEDS ORDERED: PETROLATUM,WHITE 71 GM JELLY TP PRN (19:15)
[2018-03-31] MEDS ORDERED: IBUPROFEN 600 MG TABLET PO PRN (19:15)
[2018-03-31] MEDS ORDERED: MAG HYDROX/AL HYDROX/SIMETH ES 30 ML SUSPENSION UDCUP PO PRN (19:15)
[2018-04-01 06:33] LABS: GLUCOMETER DEV NAME(LOC) BV3S 2; GLUCOSE,POINT OF CARE 103 MG/DL (70-110)
[2018-04-01] MEDS: MetFORMIN HCL 500 MG TABLET PO SCH ×2 (06:37→16:58)
[2018-04-01] MEDS: OLANZapine 10 MG TABLET PO SCH ×2 (08:10→16:58)
[2018-04-01] MEDS: LORazepam 2 MG TABLET PO PRN ×2 (08:10→16:59)
[2018-04-01] MEDS: OMEPRAZOLE 20 MG CAPSULE PO SCH (08:10)
[2018-04-01] MEDS: DOCUSATE SODIUM 100 MG CAPSULE PO SCH (08:10)
[2018-04-01] MEDS: BENZTROPINE MESYLATE 2 MG TABLET PO SCH ×2 (08:10→16:58)
[2018-04-01 08:11] VITALS: BP 102/63
[2018-04-01 08:29] LABS: BASOPHILS % (AUTO) 0.6 % (0.0-2.0); EOSINOPHILS % (AUTO) 3.4 % (1.0-6.0); HEMATOCRIT 41.4 % (41-53); HEMOGLOBIN 14.8 g/dL (13.5-17.5); LYMPHOCYTES # (AUTO) 2.2 K/uL (1.0-4.8); MEAN CORPUSCULAR HEMOGLOBIN 31.1 pg (26.0-34.0); MEAN CORPUSCULAR HGB CONC 35.7 G/dL (31.0-37.0); MEAN CORPUSCULAR VOLUME 87 fL (80-100); MONOCYTES # (AUTO) 0.5 K/uL (0.1-1.0); MONOCYTES % (AUTO) 10.9 % (2.0-9.0); NEUTROPHILS # (AUTO) 1.5 K/uL (1.8-7.7); NEUTROPHILS % (AUTO) 34.1 % (40.0-70.0); PLATELET COUNT (AUTO) 350 K/uL (150-450); RED BLOOD CELL COUNT(AUTO) 4.75 MIL/uL (4.50-5.90); RED CELL DISTRIBUTION WIDTH 13.1 % (11.5-14.5)
[2018-04-01 08:38] LABS: HEMOGLOBIN A1C 6.6 % (4.5-6.2)
[2018-04-01] MEDS ORDERED: OMEPRAZOLE 20 MG CAPSULE PO SCH (09:00)
[2018-04-01] MEDS ORDERED: OLANZapine 10 MG TABLET PO SCH ×2 (09:00→21:00)
[2018-04-01 09:04] LABS: ALANINE AMINOTRANSFERASE 33 U/L (12-78); ALBUMIN 3.9 g/dL (3.4-5.0); ALKALINE PHOSPHATASE 62 U/L (46-116); ANION GAP 6 mmol/L (8-16); ASPARTATE AMINOTRANSFERASE 20 U/L (15-37); BILIRUBIN,TOTAL 1.2 mg/dL (0.1-1.0); CALCIUM, TOTAL 9.1 mg/dL (8.8-10.5); CARBON DIOXIDE 33 mmol/L (22-29); CHLORIDE 101 mmol/L (98-107); CHOL/HDL RATIO 2.5 (4.2-7.3); CHOLESTEROL 190 mg/dL (131-200); CREATININE 0.85 mg/dL (0.60-1.30); FREE T4 (FREE THYROXINE) 0.88 ng/dL (0.76-1.46); GLOMERULAR FILTR. RATE CALC > 60 mL/min (>60); GLUCOSE,RANDOM 104 mg/dL (70-110); HDL CHOLESTEROL 77 mg/dL (40-60); LDL CHOL (CALC.) 100 mg/dL (0-130); POTASSIUM 4.3 mmol/L (3.5-5.1); SODIUM SERUM 140 mmol/L (136-145); THYROID STIMULATING HORMONE 3.01 uIU/mL (0.36-3.74); TOTAL PROTEIN, SERUM 7.2 g/dL (6.4-8.2); TRIGLYCERIDES 67 mg/dL (15-150); UREA NITROGEN, BLOOD 11 mg/dL (7-18)
[2018-04-01] MEDS ORDERED: OLAN10TA3 PO (14:31)
[2018-04-01 16:00] VITALS: BP 108/70
[2018-04-01 17:44] LABS: GLUCOMETER DEV NAME(LOC) BV3S 2; GLUCOSE,POINT OF CARE 95 MG/DL (70-110)
[2018-04-01] MEDS ORDERED: BENZTROPINE MESYLATE 2 MG TABLET PO SCH (21:00)
[2018-04-02 06:02] LABS: GLUCOMETER DEV NAME(LOC) BV3N5; GLUCOSE,POINT OF CARE 89 MG/DL (70-110)
[2018-04-02 06:19] VITALS: BP 117/75
[2018-04-02] MEDS: MetFORMIN HCL 500 MG TABLET PO SCH ×2 (06:41→17:16)
[2018-04-02] MEDS: OMEPRAZOLE 20 MG CAPSULE PO SCH (08:13)
[2018-04-02] MEDS: DOCUSATE SODIUM 100 MG CAPSULE PO SCH (08:13)
[2018-04-02] MEDS: BENZTROPINE MESYLATE 2 MG TABLET PO SCH ×2 (08:13→17:00)
[2018-04-02] MEDS: OLANZapine 10 MG TABLET PO SCH ×2 (08:14→17:00)
[2018-04-02] MEDS: CHOLECALCIFEROL (VIT D3) 1,000 UNITS TABLET PO SCH (08:14)
[2018-04-02 09:06] VITALS: BP 114/65
[2018-04-02 11:42] LABS: GLUCOMETER DEV NAME(LOC) BV3N5; GLUCOSE,POINT OF CARE 53 MG/DL (70-110)
[2018-04-02 13:03] LABS: GLUCOMETER DEV NAME(LOC) BV3N5; GLUCOSE,POINT OF CARE 117 MG/DL (70-110)
[2018-04-02 16:21] VITALS: BP 113/67
[2018-04-02] MEDS: MUPIROCIN CALCIUM 2% 22 GM OINTMENT NASAL SCH (17:16)
[2018-04-02] MEDS: LORazepam 2 MG TABLET PO PRN (17:16)
[2018-04-02 17:37] LABS: GLUCOMETER DEV NAME(LOC) BV3N5; GLUCOSE,POINT OF CARE 88 MG/DL (70-110)
[2018-04-03 06:17] VITALS: BP 103/62
[2018-04-03 06:34] LABS: GLUCOMETER DEV NAME(LOC) BV3N5; GLUCOSE,POINT OF CARE 89 MG/DL (70-110)
[2018-04-03] MEDS: MetFORMIN HCL 500 MG TABLET PO SCH ×2 (06:54→16:35)
[2018-04-03 08:04] VITALS: BP 126/84
[2018-04-03] MEDS: BENZTROPINE MESYLATE 2 MG TABLET PO SCH ×2 (08:20→16:35)
[2018-04-03] MEDS: MUPIROCIN CALCIUM 2% 22 GM OINTMENT NASAL SCH ×2 (08:20→16:35)
[2018-04-03] MEDS: OLANZapine 10 MG TABLET PO SCH ×2 (08:21→16:35)
[2018-04-03] MEDS: CHOLECALCIFEROL (VIT D3) 1,000 UNITS TABLET PO SCH (08:21)
[2018-04-03] MEDS: DOCUSATE SODIUM 100 MG CAPSULE PO SCH (08:21)
[2018-04-03] MEDS: OMEPRAZOLE 20 MG CAPSULE PO SCH (08:21)
[2018-04-03 11:57] LABS: GLUCOMETER DEV NAME(LOC) BV3N5; GLUCOSE,POINT OF CARE 93 MG/DL (70-110)
[2018-04-03 16:01] VITALS: BP 105/66
[2018-04-03 16:28] LABS: GLUCOMETER DEV NAME(LOC) BV3N5; GLUCOSE,POINT OF CARE 183 MG/DL (70-110)
[2018-04-03] MEDS: INSULIN LISPRO 100 UNITS/ML SQ PRN ×2 (16:30→21:00)
[2018-04-03] MEDS: LORazepam 2 MG TABLET PO PRN (16:35)
[2018-04-03 21:03] LABS: GLUCOMETER DEV NAME(LOC) BV3N5; GLUCOSE,POINT OF CARE 161 MG/DL (70-110)
[2018-04-04] MEDS: MetFORMIN HCL 500 MG TABLET PO SCH ×2 (06:18→16:24)
[2018-04-04 06:22] LABS: GLUCOMETER DEV NAME(LOC) BV3N5; GLUCOSE,POINT OF CARE 97 MG/DL (70-110)
[2018-04-04 06:38] VITALS: BP 107/68
[2018-04-04 08:04] VITALS: BP 111/60
[2018-04-04] MEDS: DOCUSATE SODIUM 100 MG CAPSULE PO SCH (09:00)
[2018-04-04] MEDS: CHOLECALCIFEROL (VIT D3) 1,000 UNITS TABLET PO SCH (09:00)
[2018-04-04] MEDS: OMEPRAZOLE 20 MG CAPSULE PO SCH (09:00)
[2018-04-04] MEDS: MUPIROCIN CALCIUM 2% 22 GM OINTMENT NASAL SCH ×2 (09:00→16:25)
[2018-04-04] MEDS: OLANZapine 10 MG TABLET PO SCH ×2 (09:05→16:24)
[2018-04-04] MEDS: BENZTROPINE MESYLATE 2 MG TABLET PO SCH ×2 (09:05→16:25)
[2018-04-04 11:38] LABS: GLUCOMETER DEV NAME(LOC) BV3N5; GLUCOSE,POINT OF CARE 88 MG/DL (70-110)
[2018-04-04 16:00] VITALS: BP 108/65
[2018-04-04] MEDS: LORazepam 2 MG TABLET PO PRN (16:25)
[2018-04-04] MEDS: INSULIN LISPRO 100 UNITS/ML SQ PRN (16:26)
[2018-04-04 16:43] LABS: GLUCOMETER DEV NAME(LOC) BV3N5; GLUCOSE,POINT OF CARE 145 MG/DL (70-110)
[2018-04-05 06:22] VITALS: BP 110/73
[2018-04-05] MEDS: MetFORMIN HCL 500 MG TABLET PO SCH ×2 (06:26→16:40)
[2018-04-05 06:33] LABS: GLUCOMETER DEV NAME(LOC) BV3N5; GLUCOSE,POINT OF CARE 95 MG/DL (70-110)
[2018-04-05 08:06] VITALS: BP 108/71
[2018-04-05] MEDS: DOCUSATE SODIUM 100 MG CAPSULE PO SCH (09:40)
[2018-04-05] MEDS: CHOLECALCIFEROL (VIT D3) 1,000 UNITS TABLET PO SCH (09:40)
[2018-04-05] MEDS: BENZTROPINE MESYLATE 2 MG TABLET PO SCH ×2 (09:40→16:40)
[2018-04-05] MEDS: MUPIROCIN CALCIUM 2% 22 GM OINTMENT NASAL SCH ×2 (09:40→16:43)
[2018-04-05] MEDS: OMEPRAZOLE 20 MG CAPSULE PO SCH (09:40)
[2018-04-05] MEDS: OLANZapine 10 MG TABLET PO SCH ×2 (09:40→16:40)
[2018-04-05 11:58] LABS: GLUCOMETER DEV NAME(LOC) BV3N5; GLUCOSE,POINT OF CARE 86 MG/DL (70-110)
[2018-04-05 16:54] LABS: GLUCOMETER DEV NAME(LOC) BV3N5; GLUCOSE,POINT OF CARE 104 MG/DL (70-110)
[2018-04-05 17:11] VITALS: BP 105/64
[2018-04-05] MEDS: INSULIN LISPRO 100 UNITS/ML SQ PRN (20:32)
[2018-04-05] MEDS: LORazepam 2 MG TABLET PO PRN (20:33)
[2018-04-05 20:38] LABS: GLUCOMETER DEV NAME(LOC) BV3N5; GLUCOSE,POINT OF CARE 187 MG/DL (70-110)
[2018-04-06] MEDS: MetFORMIN HCL 500 MG TABLET PO SCH ×2 (06:34→16:42)
[2018-04-06 06:53] VITALS: BP 112/78
[2018-04-06] MEDS: DOCUSATE SODIUM 100 MG CAPSULE PO SCH (08:29)
[2018-04-06] MEDS: MUPIROCIN CALCIUM 2% 22 GM OINTMENT NASAL SCH ×2 (08:29→16:42)
[2018-04-06] MEDS: CHOLECALCIFEROL (VIT D3) 1,000 UNITS TABLET PO SCH (08:29)
[2018-04-06] MEDS: OMEPRAZOLE 20 MG CAPSULE PO SCH (08:29)
[2018-04-06] MEDS: BENZTROPINE MESYLATE 2 MG TABLET PO SCH ×2 (08:29→16:42)
[2018-04-06 08:35] VITALS: BP 123/74
[2018-04-06] MEDS: OLANZapine 10 MG TABLET PO SCH ×2 (08:57→16:42)
[2018-04-06] MEDS: FLUoxetine HCL 20 MG CAPSULE PO SCH (09:30)
[2018-04-06 12:43] LABS: GLUCOMETER DEV NAME(LOC) BV3N5; GLUCOSE,POINT OF CARE 109 MG/DL (70-110)
[2018-04-06 12:43] LABS: GLUCOMETER DEV NAME(LOC) BV3N5; GLUCOSE,POINT OF CARE 84 MG/DL (70-110)
[2018-04-06 16:00] VITALS: BP 112/70
[2018-04-06 16:58] LABS: GLUCOMETER DEV NAME(LOC) BV3N5; GLUCOSE,POINT OF CARE 101 MG/DL (70-110)
[2018-04-06 22:03] LABS: GLUCOMETER DEV NAME(LOC) BV3N5; GLUCOSE,POINT OF CARE 115 MG/DL (70-110)
[2018-04-07 06:21] VITALS: BP 109/64
[2018-04-07 06:24] LABS: GLUCOMETER DEV NAME(LOC) BV3N5; GLUCOSE,POINT OF CARE 92 MG/DL (70-110)
[2018-04-07] MEDS: MetFORMIN HCL 500 MG TABLET PO SCH ×2 (06:45→16:29)
[2018-04-07] MEDS: BENZTROPINE MESYLATE 2 MG TABLET PO SCH ×2 (08:50→16:29)
[2018-04-07] MEDS: FLUoxetine HCL 20 MG CAPSULE PO SCH (08:50)
[2018-04-07] MEDS: MUPIROCIN CALCIUM 2% 22 GM OINTMENT NASAL SCH ×2 (08:50→16:29)
[2018-04-07] MEDS: OLANZapine 10 MG TABLET PO SCH ×2 (08:50→16:29)
[2018-04-07] MEDS: DOCUSATE SODIUM 100 MG CAPSULE PO SCH (08:50)
[2018-04-07] MEDS: OMEPRAZOLE 20 MG CAPSULE PO SCH (08:51)
[2018-04-07] MEDS: CHOLECALCIFEROL (VIT D3) 1,000 UNITS TABLET PO SCH (08:51)
[2018-04-07 10:16] VITALS: BP 110/66
[2018-04-07 11:33] LABS: GLUCOMETER DEV NAME(LOC) BV3N5; GLUCOSE,POINT OF CARE 87 MG/DL (70-110)
[2018-04-07 16:05] VITALS: BP 119/72
[2018-04-07] MEDS: LORazepam 2 MG TABLET PO PRN (16:32)
[2018-04-07 17:12] LABS: GLUCOMETER DEV NAME(LOC) BV3N5; GLUCOSE,POINT OF CARE 137 MG/DL (70-110)
[2018-04-07 21:37] LABS: GLUCOMETER DEV NAME(LOC) BV3N5; GLUCOSE,POINT OF CARE 136 MG/DL (70-110)
[2018-04-08 05:24] VITALS: BP 102/66
[2018-04-08 06:17] VITALS: BP 110/68
[2018-04-08] MEDS: MetFORMIN HCL 500 MG TABLET PO SCH ×2 (06:19→16:57)
[2018-04-08 06:28] LABS: GLUCOMETER DEV NAME(LOC) BV3N5; GLUCOSE,POINT OF CARE 107 MG/DL (70-110)
[2018-04-08] MEDS: DOCUSATE SODIUM 100 MG CAPSULE PO SCH (08:18)
[2018-04-08] MEDS: FLUoxetine HCL 20 MG CAPSULE PO SCH (08:18)
[2018-04-08] MEDS: LORazepam 2 MG TABLET PO PRN ×2 (08:18→16:57)
[2018-04-08] MEDS: OMEPRAZOLE 20 MG CAPSULE PO SCH (08:18)
[2018-04-08] MEDS: OLANZapine 10 MG TABLET PO SCH ×2 (08:18→16:56)
[2018-04-08] MEDS: BENZTROPINE MESYLATE 2 MG TABLET PO SCH ×2 (08:18→16:56)
[2018-04-08] MEDS: CHOLECALCIFEROL (VIT D3) 1,000 UNITS TABLET PO SCH (08:18)
[2018-04-08 11:33] LABS: GLUCOMETER DEV NAME(LOC) BV3N5; GLUCOSE,POINT OF CARE 110 MG/DL (70-110)
[2018-04-08 16:33] VITALS: BP 130/82
[2018-04-08 16:58] LABS: GLUCOMETER DEV NAME(LOC) BV3N5; GLUCOSE,POINT OF CARE 95 MG/DL (70-110)
[2018-04-08 20:48] LABS: GLUCOMETER DEV NAME(LOC) BV3N5; GLUCOSE,POINT OF CARE 90 MG/DL (70-110)
[2018-04-09 06:12] VITALS: BP 115/65
[2018-04-09] MEDS: MetFORMIN HCL 500 MG TABLET PO SCH ×2 (06:28→16:33)
[2018-04-09 06:33] LABS: GLUCOMETER DEV NAME(LOC) BV3N5; GLUCOSE,POINT OF CARE 94 MG/DL (70-110)
[2018-04-09 08:03] VITALS: BP 105/65
[2018-04-09] MEDS: FLUoxetine HCL 20 MG CAPSULE PO SCH (08:12)
[2018-04-09] MEDS: CHOLECALCIFEROL (VIT D3) 1,000 UNITS TABLET PO SCH (08:13)
[2018-04-09] MEDS: DOCUSATE SODIUM 100 MG CAPSULE PO SCH (08:13)
[2018-04-09] MEDS: OLANZapine 10 MG TABLET PO SCH ×2 (08:13→16:33)
[2018-04-09] MEDS: BENZTROPINE MESYLATE 2 MG TABLET PO SCH ×2 (08:13→16:33)
[2018-04-09] MEDS: OMEPRAZOLE 20 MG CAPSULE PO SCH (08:13)
[2018-04-09 11:23] LABS: GLUCOMETER DEV NAME(LOC) BV3N5; GLUCOSE,POINT OF CARE 79 MG/DL (70-110)
[2018-04-09 16:20] VITALS: BP 105/66
[2018-04-09 17:13] LABS: GLUCOMETER DEV NAME(LOC) BV3N5; GLUCOSE,POINT OF CARE 110 MG/DL (70-110)
[2018-04-09] MEDS: LORazepam 2 MG TABLET PO PRN (20:18)
[2018-04-09] MEDS: INSULIN LISPRO 100 UNITS/ML SQ PRN (20:18)
[2018-04-09 20:53] LABS: GLUCOMETER DEV NAME(LOC) BV3N5; GLUCOSE,POINT OF CARE 143 MG/DL (70-110)
[2018-04-10] MEDS: MetFORMIN HCL 500 MG TABLET PO SCH ×2 (06:27→16:26)
[2018-04-10 06:34] LABS: GLUCOMETER DEV NAME(LOC) BV3N5; GLUCOSE,POINT OF CARE 94 MG/DL (70-110)
[2018-04-10 08:13] VITALS: BP 104/60
[2018-04-10] MEDS: BENZTROPINE MESYLATE 2 MG TABLET PO SCH ×2 (08:26→16:26)
[2018-04-10] MEDS: FLUoxetine HCL 20 MG CAPSULE PO SCH (08:26)
[2018-04-10] MEDS: CHOLECALCIFEROL (VIT D3) 1,000 UNITS TABLET PO SCH (08:26)
[2018-04-10] MEDS: DOCUSATE SODIUM 100 MG CAPSULE PO SCH (08:27)
[2018-04-10] MEDS: OLANZapine 10 MG TABLET PO SCH ×2 (08:27→16:26)
[2018-04-10] MEDS: OMEPRAZOLE 20 MG CAPSULE PO SCH (08:29)
[2018-04-10 11:33] LABS: GLUCOMETER DEV NAME(LOC) BV3N5; GLUCOSE,POINT OF CARE 65 MG/DL (70-110)
[2018-04-10 16:10] VITALS: BP 106/61
[2018-04-10] MEDS: INSULIN LISPRO 100 UNITS/ML SQ PRN (16:27)
[2018-04-10 17:03] LABS: GLUCOMETER DEV NAME(LOC) BV3N5; GLUCOSE,POINT OF CARE 201 MG/DL (70-110)
[2018-04-10 21:53] LABS: GLUCOMETER DEV NAME(LOC) BV3N5; GLUCOSE,POINT OF CARE 95 MG/DL (70-110)
[2018-04-11 00:30] VITALS: BP 114/67
[2018-04-11] MEDS: MetFORMIN HCL 500 MG TABLET PO SCH ×2 (06:36→16:58)
[2018-04-11 06:43] LABS: GLUCOMETER DEV NAME(LOC) BV3N5; GLUCOSE,POINT OF CARE 96 MG/DL (70-110)
[2018-04-11 08:02] VITALS: BP 126/85
[2018-04-11] MEDS: DOCUSATE SODIUM 100 MG CAPSULE PO SCH (08:06)
[2018-04-11] MEDS: CHOLECALCIFEROL (VIT D3) 1,000 UNITS TABLET PO SCH (08:06)
[2018-04-11] MEDS: OLANZapine 10 MG TABLET PO SCH ×2 (08:06→16:58)
[2018-04-11] MEDS: OMEPRAZOLE 20 MG CAPSULE PO SCH (08:06)
[2018-04-11] MEDS: BENZTROPINE MESYLATE 2 MG TABLET PO SCH ×2 (08:06→16:58)
[2018-04-11] MEDS: FLUoxetine HCL 20 MG CAPSULE PO SCH (08:06)
[2018-04-11 11:39] LABS: GLUCOMETER DEV NAME(LOC) BV3N5; GLUCOSE,POINT OF CARE 70 MG/DL (70-110)
[2018-04-11 16:02] VITALS: BP_SYST 118; BP_SYST 126; BP_DIAS 76; BP_DIAS 85
[2018-04-11] MEDS: LORazepam 2 MG TABLET PO PRN (17:17)
[2018-04-11 17:28] LABS: GLUCOMETER DEV NAME(LOC) BV3N5; GLUCOSE,POINT OF CARE 122 MG/DL (70-110)
[2018-04-11 21:12] LABS: GLUCOMETER DEV NAME(LOC) BV3N5; GLUCOSE,POINT OF CARE 139 MG/DL (70-110)
[2018-04-12 06:22] VITALS: BP 115/70
[2018-04-12] MEDS: MetFORMIN HCL 500 MG TABLET PO SCH ×2 (06:43→16:22)
[2018-04-12 06:49] LABS: GLUCOMETER DEV NAME(LOC) BV3N5; GLUCOSE,POINT OF CARE 84 MG/DL (70-110)
[2018-04-12 08:22] VITALS: BP 121/71
[2018-04-12] MEDS: CHOLECALCIFEROL (VIT D3) 1,000 UNITS TABLET PO SCH (09:06)
[2018-04-12] MEDS: FLUoxetine HCL 20 MG CAPSULE PO SCH (09:06)
[2018-04-12] MEDS: BENZTROPINE MESYLATE 2 MG TABLET PO SCH ×2 (09:06→16:22)
[2018-04-12] MEDS: DOCUSATE SODIUM 100 MG CAPSULE PO SCH (09:06)
[2018-04-12] MEDS: OMEPRAZOLE 20 MG CAPSULE PO SCH (09:06)
[2018-04-12] MEDS: OLANZapine 10 MG TABLET PO SCH ×2 (09:07→16:22)
[2018-04-12] MEDS: MUPIROCIN CALCIUM 2% 22 GM OINTMENT NASAL SCH ×2 (09:57→16:22)
[2018-04-12 11:23] LABS: GLUCOMETER DEV NAME(LOC) BV3N5; GLUCOSE,POINT OF CARE 112 MG/DL (70-110)
[2018-04-12 16:00] VITALS: BP 116/66
[2018-04-12 16:28] LABS: GLUCOMETER DEV NAME(LOC) BV3N5; GLUCOSE,POINT OF CARE 137 MG/DL (70-110)
[2018-04-13] MEDS: MetFORMIN HCL 500 MG TABLET PO SCH (06:40)
[2018-04-13 06:45] VITALS: BP 125/62
[2018-04-13 06:54] LABS: GLUCOMETER DEV NAME(LOC) BV3N5; GLUCOSE,POINT OF CARE 106 MG/DL (70-110)
[2018-04-13 08:02] VITALS: BP 136/76
[2018-04-13] MEDS: MUPIROCIN CALCIUM 2% 22 GM OINTMENT NASAL SCH (08:42)
[2018-04-13] MEDS: DOCUSATE SODIUM 100 MG CAPSULE PO SCH (08:42)
[2018-04-13] MEDS: CHOLECALCIFEROL (VIT D3) 1,000 UNITS TABLET PO SCH (08:42)
[2018-04-13] MEDS: FLUoxetine HCL 20 MG CAPSULE PO SCH (08:42)
[2018-04-13] MEDS: OMEPRAZOLE 20 MG CAPSULE PO SCH (08:42)
[2018-04-13] MEDS: OLANZapine 10 MG TABLET PO SCH (08:42)
[2018-04-13] MEDS: BENZTROPINE MESYLATE 2 MG TABLET PO SCH (08:42)
[2018-04-13] MEDS ORDERED: FLUO-191 PO (09:24)
[2018-04-13] MEDS ORDERED: VITAD1000 PO (09:24)
[2018-04-13] MEDS ORDERED: MUPI1OIN4 NS (09:24)
== END 2018-04-13 10:00 | disposition home or self-care (01) | DRG 750 ==
LOC: B3A 16:44
PROVIDERS: ADMIT Psychiatry & Neurology Psychiatry; ATTEND Psychiatry & Neurology Psychiatry
DX: F25.1 Schizoaffective disorder, depressive type (principal); E11.9 Type 2 diabetes mellitus without complications; R45.851 Suicidal ideations; E55.9 Vitamin D deficiency, unspecified; E03.9 Hypothyroidism, unspecified; F41.9 Anxiety disorder, unspecified; J44.9 Chronic obstructive pulmonary disease, unspecified; K21.9 Gastro-esophageal reflux disease without esophagitis; F17.200 Nicotine dependence, unspecified, uncomplicated; F15.90 Other stimulant use, unspecified, uncomplicated; Z56.0 Unemployment, unspecified; Z79.84 Long term (current) use of oral hypoglycemic drugs; Z79.51 Long term (current) use of inhaled steroids; Z79.899 Other long term (current) drug therapy; Z72.89 Other problems related to lifestyle; Z28.21 Immunization not carried out because of patient refusal; Z71.6 Tobacco abuse counseling; Z22.322 Carrier or suspected carrier of Methicillin resistant Staphylococcus aureus
CPT/HCPCS: 83036; 84439; 84443; 87081; J1200; J1630; J2060

== ENCOUNTER 2018-08-08 19:45 | Inpatient (IN) | payer MEDICAID ==
[~2018-08-08] VITALS: Ht 175.3 cm; Wt 72.8 kg
[~2018-08-08 19:45] MED LIST changes: -CEPH500 PO; +FLUO-191 PO; +METF-960 PO; -METF500T6 PO; +MULT-1239 PO; +OLAN10TA3 PO; -OLAN7.5T2 PO; +SULF1TAB42 PO
[2018-08-08] MEDS ORDERED: OLAN5TAB2 PO (21:21)
[2018-08-08 21:51] LABS: BASOPHILS % (AUTO) 0.8 % (0.0-2.0); EOSINOPHILS % (AUTO) 1.5 % (1.0-6.0); HEMATOCRIT 40.9 % (41-53); HEMOGLOBIN 14.3 g/dL (13.5-17.5); LYMPHOCYTES # (AUTO) 1.9 K/uL (1.0-4.8); LYMPHOCYTES % (AUTO) 39.6 % (22.0-44.0); MEAN CORPUSCULAR HEMOGLOBIN 30.7 pg (26.0-34.0); MEAN CORPUSCULAR HGB CONC 35.1 G/dL (31.0-37.0); MEAN CORPUSCULAR VOLUME 88 fL (80-100); MONOCYTES # (AUTO) 0.5 K/uL (0.1-1.0); MONOCYTES % (AUTO) 10.6 % (2.0-9.0); NEUTROPHILS # (AUTO) 2.3 K/uL (1.8-7.7); NEUTROPHILS % (AUTO) 47.5 % (40.0-70.0); PLATELET COUNT (AUTO) 362 K/uL (150-450); RED BLOOD CELL COUNT(AUTO) 4.67 MIL/uL (4.50-5.90); RED CELL DISTRIBUTION WIDTH 13.1 % (11.5-14.5)
[2018-08-08 22:06] LABS: ANION GAP 5 mmol/L (8-16); CALCIUM, TOTAL 9.8 mg/dL (8.8-10.5); CARBON DIOXIDE 34 mmol/L (22-29); CHLORIDE 102 mmol/L (98-107); CREATININE 1.12 mg/dL (0.60-1.30); GLOMERULAR FILTR. RATE CALC > 60 mL/min (>60); GLUCOSE,RANDOM 111 mg/dL (70-110); POTASSIUM 3.9 mmol/L (3.5-5.1); SODIUM SERUM 141 mmol/L (136-145); UREA NITROGEN, BLOOD 25 mg/dL (7-18)
[2018-08-08 22:11] LABS: ALANINE AMINOTRANSFERASE 34 U/L (12-78); ALBUMIN 4.2 g/dL (3.4-5.0); ALKALINE PHOSPHATASE 68 U/L (46-116); ASPARTATE AMINOTRANSFERASE 26 U/L (15-37); BILIRUBIN,TOTAL 1.3 mg/dL (0.1-1.0); TOTAL PROTEIN, SERUM 8.1 g/dL (6.4-8.2)
[2018-08-08 22:12] LABS: PLATELET MORPHOLOGY COMMENT LARGE PLTS PRESENT
[2018-08-08 22:13] LABS: AMPHET/METH SCREEN,URINE POSITIVE (NEGATIVE); BARBITURATE SCREEN, URINE NEGATIVE (NEGATIVE); BENZODIAZEPINES SCREEN,URINE NEGATIVE (NEGATIVE); CANNABINOID SCREEN,URINE NEGATIVE (NEGATIVE); COCAINE SCREEN,URINE NEGATIVE (NEGATIVE); METHADONE SCREEN, URINE NEGATIVE (NEGATIVE); OPIATE SCREEN,URINE NEGATIVE (NEGATIVE)
[2018-08-08 22:14] LABS: PHENCYCLIDINE SCREEN,URINE NEGATIVE (NEGATIVE)
[2018-08-08] MEDS ORDERED: HALOPERIDOL 5 MG TABLET PO PRN (23:15)
[2018-08-08] MEDS ORDERED: ZOLPIDEM TARTRATE 10 MG TABLET PO PRN (23:15)
[2018-08-08] MEDS ORDERED: LORazepam 2 MG TABLET PO PRN (23:15)
[2018-08-09 01:07] VITALS: BP 134/85
[2018-08-09] MEDS ORDERED: PNEUMOCOCCAL VACCINE POLYVALENT 0.5 ML VIAL [PPSV23] IM ONE (03:30)
[2018-08-09] MEDS ORDERED: BENZOCAINE/MENTHOL LOZENGE MM PRN (07:00)
[2018-08-09] MEDS ORDERED: MAGNESIUM HYDROXIDE SUSPENSION 30 ML UDCUP PO PRN (07:00)
[2018-08-09] MEDS ORDERED: INSULIN LISPRO 100 UNITS/ML SQ PRN (07:00)
[2018-08-09] MEDS ORDERED: BACITRACIN 28.4 GM OINTMENT TP PRN (07:00)
[2018-08-09] MEDS ORDERED: LOPERAMIDE HCL 2 MG CAPSULE PO PRN ×2 (07:00→11:00)
[2018-08-09] MEDS ORDERED: IBUPROFEN 600 MG TABLET PO PRN (07:00)
[2018-08-09] MEDS ORDERED: CloNIDine HCL 0.1 MG TABLET PO PRN (07:00)
[2018-08-09] MEDS ORDERED: PETROLATUM,WHITE 71 GM JELLY TP PRN (07:00)
[2018-08-09] MEDS ORDERED: ALBUTEROL SULFATE HFA 90 MCG/PUFF 8 GM INHALER IH PRN (07:00)
[2018-08-09] MEDS ORDERED: ACETAMINOPHEN 325 MG TABLET PO PRN (07:00)
[2018-08-09] MEDS: MetFORMIN HCL 500 MG TABLET PO SCH ×2 (07:00→16:28)
[2018-08-09] MEDS ORDERED: MAG HYDROX/AL HYDROX/SIMETH ES 30 ML SUSPENSION UDCUP PO PRN (07:00)
[2018-08-09] MEDS ORDERED: ONDANSETRON HCL 4 MG TABLET PO PRN (07:00)
[2018-08-09] MEDS ORDERED: GLUCAGON,HUMAN RECOMBINANT 1 MG VIAL IM PRN (07:00)
[2018-08-09 08:08] VITALS: BP 111/70
[2018-08-09] MEDS: OMEPRAZOLE 20 MG CAPSULE PO SCH (08:12)
[2018-08-09] MEDS: DOCUSATE SODIUM 100 MG CAPSULE PO SCH (08:12)
[2018-08-09] MEDS ORDERED: OLANZapine 5 MG RAPDIS TABLET PO PRN (11:00)
[2018-08-09] MEDS ORDERED: GuaiFENesin/D-METHORPHAN [SUGAR-FREE] 200-20MG/10 ML SYRUP UDCUP PO PRN (11:00)
[2018-08-09] MEDS ORDERED: HydrOXYzine PAMOATE 50 MG CAPSULE PO PRN (11:00)
[2018-08-09 16:04] VITALS: BP 112/69
[2018-08-09] MEDS: THIAMINE HCL 100 MG TABLET PO SCH (16:28)
[2018-08-09] MEDS: OLANZapine 5 MG RAPDIS TABLET PO SCH (21:00)
[2018-08-10 01:23] VITALS: BP 119/62
[2018-08-10] MEDS: LEVOTHYROXINE SODIUM 25 MCG TABLET PO SCH (06:30)
[2018-08-10] MEDS: MetFORMIN HCL 500 MG TABLET PO SCH ×2 (06:54→16:25)
[2018-08-10 08:09] VITALS: BP 116/81
[2018-08-10] MEDS: MULTIVITAMINS WITH MINERALS, THERAPEUTIC TABLET PO SCH (08:52)
[2018-08-10] MEDS: NALTREXONE HCL 50 MG TABLET PO SCH (08:52)
[2018-08-10] MEDS: THIAMINE HCL 100 MG TABLET PO SCH ×2 (08:53→16:25)
[2018-08-10] MEDS: FOLIC ACID 1 MG TABLET PO SCH (08:53)
[2018-08-10] MEDS: OMEPRAZOLE 20 MG CAPSULE PO SCH (08:53)
[2018-08-10] MEDS: DOCUSATE SODIUM 100 MG CAPSULE PO SCH (09:03)
[2018-08-10 12:00] LABS: GLUCOMETER DEV NAME(LOC) BV3N5; GLUCOSE,POINT OF CARE 121 MG/DL (70-110)
[2018-08-10 16:00] VITALS: BP 112/68
[2018-08-10] MEDS: OLANZapine 5 MG RAPDIS TABLET PO SCH (20:21)
[2018-08-11] MEDS: LEVOTHYROXINE SODIUM 25 MCG TABLET PO SCH (06:30)
[2018-08-11] MEDS: MetFORMIN HCL 500 MG TABLET PO SCH (06:34)
[2018-08-11 06:38] VITALS: BP 114/65
[2018-08-11 08:10] VITALS: BP 116/68
[2018-08-11] MEDS: OMEPRAZOLE 20 MG CAPSULE PO SCH (09:00)
[2018-08-11] MEDS: MULTIVITAMINS WITH MINERALS, THERAPEUTIC TABLET PO SCH (09:00)
[2018-08-11] MEDS: NALTREXONE HCL 50 MG TABLET PO SCH (09:00)
[2018-08-11] MEDS: THIAMINE HCL 100 MG TABLET PO SCH ×2 (09:00→16:42)
[2018-08-11] MEDS: DOCUSATE SODIUM 100 MG CAPSULE PO SCH (09:00)
[2018-08-11] MEDS: FOLIC ACID 1 MG TABLET PO SCH (09:00)
[2018-08-11] MEDS ORDERED: QUEtiapine FUMARATE 100 MG TABLET PO PRN (15:15)
[2018-08-11] MEDS ORDERED: OLANZapine 5 MG RAPDIS TABLET PO PRN (15:30)
[2018-08-11] MEDS ORDERED: OLANZapine 5 MG RAPDIS TABLET PO ONE (15:30)
[2018-08-11 16:00] VITALS: BP 115/63
[2018-08-11] MEDS ORDERED: QUEtiapine FUMARATE 200 MG TABLET PO SCH (21:00)
[2018-08-12] MEDS: LEVOTHYROXINE SODIUM 25 MCG TABLET PO SCH (06:08)
[2018-08-12 06:33] VITALS: BP 105/65
[2018-08-12 08:07] VITALS: BP 104/68
[2018-08-12] MEDS: OMEPRAZOLE 20 MG CAPSULE PO SCH (09:00)
[2018-08-12] MEDS: NALTREXONE HCL 50 MG TABLET PO SCH (09:00)
[2018-08-12] MEDS: MULTIVITAMINS WITH MINERALS, THERAPEUTIC TABLET PO SCH (09:00)
[2018-08-12] MEDS: DOCUSATE SODIUM 100 MG CAPSULE PO SCH (09:00)
[2018-08-12] MEDS: THIAMINE HCL 100 MG TABLET PO SCH (09:00)
[2018-08-12] MEDS: FOLIC ACID 1 MG TABLET PO SCH (09:00)
[2018-08-12] MEDS ORDERED: OLANZapine 5 MG RAPDIS TABLET PO SCH (09:00)
[2018-08-12] MEDS ORDERED: NALT50TA PO (11:41)
== END 2018-08-12 12:00 | disposition left against medical advice (07) | DRG 750 ==
LOC: EMS 19:46 → B3A 22:39
PROVIDERS: ADMIT Psychiatry & Neurology Psychiatry; ATTEND Psychiatry & Neurology Psychiatry
DX: F25.0 Schizoaffective disorder, bipolar type (principal); E11.9 Type 2 diabetes mellitus without complications; R45.851 Suicidal ideations; E03.9 Hypothyroidism, unspecified; F41.9 Anxiety disorder, unspecified; F32.9 Major depressive disorder, single episode, unspecified; K21.9 Gastro-esophageal reflux disease without esophagitis; J44.9 Chronic obstructive pulmonary disease, unspecified; E55.9 Vitamin D deficiency, unspecified; F17.200 Nicotine dependence, unspecified, uncomplicated; F15.90 Other stimulant use, unspecified, uncomplicated; Z59.0 Homelessness; Z91.19 Patient's noncompliance with other medical treatment and regimen; Z65.3 Problems related to other legal circumstances
CPT/HCPCS: 83036; 99285; G0480

== ENCOUNTER 2019-07-06 17:35 | Inpatient (IN) | payer MEDICAID ==
[~2019-07-06 17:35] MED LIST changes: -BENZ2TAB10 PO; -DSS100 PO; -FLUO-191 PO; -MULT-1239 PO; +NALT50TA PO; +OLAN5TAB2 PO; -OMEP20 PO; -SULF1TAB42 PO
[2019-07-06] MEDS ORDERED: NALT50TA6 PO (17:40)
[2019-07-06] MEDS ORDERED: OLAN7.5T2 PO (17:43)
[2019-07-06] MEDS ORDERED: OLANZapine 5 MG RAPDIS TABLET PO PRN (18:00)
[2019-07-06] MEDS ORDERED: MAG HYDROX/AL HYDROX/SIMETH ES 30 ML SUSPENSION UDCUP PO PRN ×2 (18:00→19:30)
[2019-07-06] MEDS ORDERED: GuaiFENesin/D-METHORPHAN [SUGAR-FREE] 200-20MG/10 ML SYRUP UDCUP PO PRN (18:00)
[2019-07-06] MEDS ORDERED: HydrOXYzine PAMOATE 50 MG CAPSULE PO PRN (18:00)
[2019-07-06] MEDS ORDERED: LOPERAMIDE HCL 2 MG CAPSULE PO PRN ×2 (18:00→19:30)
[2019-07-06] MEDS ORDERED: MAGNESIUM HYDROXIDE SUSPENSION 30 ML UDCUP PO PRN ×2 (18:00→19:30)
[2019-07-06] MEDS ORDERED: PROMETHAZINE HCL 25 MG TABLET PO PRN (18:00)
[2019-07-06] MEDS ORDERED: ACETAMINOPHEN 325 MG TABLET PO PRN ×2 (18:00→19:30)
[2019-07-06 18:40] VITALS: BP 110/69
[2019-07-06] MEDS ORDERED: PNEUMOCOCCAL VACCINE POLYVALENT 0.5 ML VIAL [PPSV23] IM ONE (19:00)
[2019-07-06] MEDS ORDERED: ONDANSETRON HCL 4 MG TABLET PO PRN (19:30)
[2019-07-06] MEDS ORDERED: INSULIN LISPRO 100 UNITS/ML SQ PRN (19:30)
[2019-07-06] MEDS ORDERED: IBUPROFEN 600 MG TABLET PO PRN (19:30)
[2019-07-06] MEDS ORDERED: BACITRACIN 28.4 GM OINTMENT TP PRN (19:30)
[2019-07-06] MEDS ORDERED: DOCUSATE SODIUM 100 MG CAPSULE PO PRN (19:30)
[2019-07-06] MEDS ORDERED: OMEPRAZOLE 20 MG CAPSULE PO PRN (19:30)
[2019-07-06] MEDS ORDERED: BENZOCAINE/MENTHOL LOZENGE MM PRN (19:30)
[2019-07-06] MEDS ORDERED: CloNIDine HCL 0.1 MG TABLET PO PRN (19:30)
[2019-07-06] MEDS ORDERED: ALBUTEROL SULFATE HFA 90 MCG/PUFF 8 GM INHALER IH PRN (19:30)
[2019-07-06] MEDS ORDERED: GLUCAGON,HUMAN RECOMBINANT 1 MG VIAL IM PRN (19:30)
[2019-07-06] MEDS ORDERED: PETROLATUM,WHITE 28 GM JELLY TP PRN (19:30)
[2019-07-06] MEDS: ZOLPIDEM TARTRATE 10 MG TABLET PO PRN (20:47)
[2019-07-06] MEDS: THIAMINE HCL 100 MG TABLET PO SCH (20:47)
[2019-07-06] MEDS ORDERED: OLANZapine 5 MG RAPDIS TABLET PO SCH (21:00)
[2019-07-07] MEDS: MetFORMIN HCL 500 MG TABLET PO SCH ×2 (06:22→16:40)
[2019-07-07] MEDS: MULTIVITAMINS WITH MINERALS, THERAPEUTIC TABLET PO SCH (09:37)
[2019-07-07] MEDS: LORazepam 2 MG TABLET PO PRN ×2 (09:37→20:40)
[2019-07-07] MEDS: NALTREXONE HCL 50 MG TABLET PO SCH (09:37)
[2019-07-07] MEDS: THIAMINE HCL 100 MG TABLET PO SCH ×2 (09:37→16:40)
[2019-07-07] MEDS: FOLIC ACID 1 MG TABLET PO SCH (09:37)
[2019-07-07 11:41] LABS: GLUCOMETER DEV NAME(LOC) BV3N.; GLUCOSE,POINT OF CARE 124 MG/DL (70-110)
[2019-07-07] MEDS ORDERED: OLAN10TA3 PO (14:40)
[2019-07-07 16:00] VITALS: BP 114/64
[2019-07-07 17:01] LABS: GLUCOMETER DEV NAME(LOC) BV3N.; GLUCOSE,POINT OF CARE 113 MG/DL (70-110)
[2019-07-07] MEDS: OLANZapine 10 MG RAPDIS TABLET PO SCH (20:40)
[2019-07-07 21:16] LABS: GLUCOMETER DEV NAME(LOC) BV3N.; GLUCOSE,POINT OF CARE 127 MG/DL (70-110)
[2019-07-08] MEDS: MetFORMIN HCL 500 MG TABLET PO SCH ×2 (06:26→16:38)
[2019-07-08 06:32] LABS: GLUCOMETER DEV NAME(LOC) BV3N.; GLUCOSE,POINT OF CARE 101 MG/DL (70-110)
[2019-07-08 08:15] VITALS: BP 100/61
[2019-07-08] MEDS: NALTREXONE HCL 50 MG TABLET PO SCH (09:18)
[2019-07-08] MEDS: THIAMINE HCL 100 MG TABLET PO SCH ×2 (09:19→16:38)
[2019-07-08] MEDS: MULTIVITAMINS WITH MINERALS, THERAPEUTIC TABLET PO SCH (09:19)
[2019-07-08] MEDS: FOLIC ACID 1 MG TABLET PO SCH (09:19)
[2019-07-08 11:36] LABS: GLUCOMETER DEV NAME(LOC) BV3N.; GLUCOSE,POINT OF CARE 114 MG/DL (70-110)
[2019-07-08 16:53] VITALS: BP 134/60
[2019-07-08 17:26] LABS: GLUCOMETER DEV NAME(LOC) BV3N.; GLUCOSE,POINT OF CARE 98 MG/DL (70-110)
[2019-07-08] MEDS: OLANZapine 10 MG RAPDIS TABLET PO SCH (20:43)
[2019-07-08 21:03] LABS: GLUCOMETER DEV NAME(LOC) BV3N.; GLUCOSE,POINT OF CARE 141 MG/DL (70-110)
[2019-07-09] MEDS: MetFORMIN HCL 500 MG TABLET PO SCH ×2 (06:36→16:53)
[2019-07-09 06:37] LABS: GLUCOMETER DEV NAME(LOC) BV3N.; GLUCOSE,POINT OF CARE 98 MG/DL (70-110)
[2019-07-09 08:34] VITALS: BP 120/69
[2019-07-09] MEDS: THIAMINE HCL 100 MG TABLET PO SCH ×2 (09:37→16:53)
[2019-07-09] MEDS: MULTIVITAMINS WITH MINERALS, THERAPEUTIC TABLET PO SCH (09:37)
[2019-07-09] MEDS: NALTREXONE HCL 50 MG TABLET PO SCH (09:37)
[2019-07-09] MEDS: FOLIC ACID 1 MG TABLET PO SCH (09:38)
[2019-07-09 15:39] LABS: GLUCOMETER DEV NAME(LOC) BV3N.; GLUCOSE,POINT OF CARE 93 MG/DL (70-110)
[2019-07-09 16:00] VITALS: BP 115/74
[2019-07-09 16:40] LABS: GLUCOMETER DEV NAME(LOC) BV3N.; GLUCOSE,POINT OF CARE 93 MG/DL (70-110)
[2019-07-09] MEDS: LORazepam 2 MG TABLET PO PRN (16:53)
[2019-07-09] MEDS: OLANZapine 10 MG RAPDIS TABLET PO SCH (21:29)
[2019-07-10 06:35] LABS: GLUCOMETER DEV NAME(LOC) BV3N.; GLUCOSE,POINT OF CARE 88 MG/DL (70-110)
[2019-07-10] MEDS: MetFORMIN HCL 500 MG TABLET PO SCH ×2 (06:51→16:37)
[2019-07-10] MEDS: THIAMINE HCL 100 MG TABLET PO SCH ×2 (10:18→16:37)
[2019-07-10] MEDS: NALTREXONE HCL 50 MG TABLET PO SCH (10:18)
[2019-07-10] MEDS: MULTIVITAMINS WITH MINERALS, THERAPEUTIC TABLET PO SCH (10:19)
[2019-07-10] MEDS: FOLIC ACID 1 MG TABLET PO SCH (10:19)
[2019-07-10 12:06] LABS: GLUCOMETER DEV NAME(LOC) BV3N.; GLUCOSE,POINT OF CARE 101 MG/DL (70-110)
[2019-07-10 16:00] VITALS: BP 110/65
[2019-07-10] MEDS: LORazepam 2 MG TABLET PO PRN (16:38)
[2019-07-10 17:23] LABS: GLUCOMETER DEV NAME(LOC) BV3N.; GLUCOSE,POINT OF CARE 115 MG/DL (70-110)
[2019-07-10] MEDS: OLANZapine 10 MG RAPDIS TABLET PO SCH (20:30)
[2019-07-10 22:08] LABS: GLUCOMETER DEV NAME(LOC) BV3N.; GLUCOSE,POINT OF CARE 137 MG/DL (70-110)
[2019-07-11] MEDS: MetFORMIN HCL 500 MG TABLET PO SCH ×2 (06:48→16:56)
[2019-07-11 06:54] LABS: GLUCOMETER DEV NAME(LOC) BV3N.; GLUCOSE,POINT OF CARE 97 MG/DL (70-110)
[2019-07-11] MEDS: MULTIVITAMINS WITH MINERALS, THERAPEUTIC TABLET PO SCH (09:00)
[2019-07-11] MEDS: NALTREXONE HCL 50 MG TABLET PO SCH (09:00)
[2019-07-11] MEDS: THIAMINE HCL 100 MG TABLET PO SCH ×2 (09:00→16:56)
[2019-07-11] MEDS: FOLIC ACID 1 MG TABLET PO SCH (09:01)
[2019-07-11 15:29] LABS: GLUCOMETER DEV NAME(LOC) BV3N.; GLUCOSE,POINT OF CARE 100 MG/DL (70-110)
[2019-07-11 16:00] VITALS: BP 109/75
[2019-07-11] MEDS: LORazepam 2 MG TABLET PO PRN (16:56)
[2019-07-11 17:25] LABS: GLUCOMETER DEV NAME(LOC) BV3N.; GLUCOSE,POINT OF CARE 111 MG/DL (70-110)
[2019-07-11] MEDS ORDERED: NALT50TA PO (18:27)
[2019-07-11] MEDS ORDERED: OLAN10TA22 PO (18:27)
[2019-07-11] MEDS: OLANZapine 10 MG RAPDIS TABLET PO SCH (20:49)
[2019-07-11] MEDS: ZOLPIDEM TARTRATE 10 MG TABLET PO PRN (20:49)
[2019-07-11 21:38] LABS: GLUCOMETER DEV NAME(LOC) BV3N.; GLUCOSE,POINT OF CARE 120 MG/DL (70-110)
[2019-07-12] MEDS ORDERED: NALT50TA PO (01:25)
[2019-07-12] MEDS ORDERED: OLAN10TA3 PO (01:26)
[2019-07-12] MEDS ORDERED: METF-444 PO (01:28)
[2019-07-12] MEDS ORDERED: OLAN10TA6 PO (01:30)
[2019-07-12] MEDS: MetFORMIN HCL 500 MG TABLET PO SCH (06:43)
== END 2019-07-12 07:25 | disposition home or self-care (01) | DRG 750 ==
LOC: B3A 18:01
PROVIDERS: ADMIT Psychiatry & Neurology Psychiatry; ATTEND Psychiatry & Neurology Psychiatry
DX: F25.9 Schizoaffective disorder, unspecified (principal); E11.9 Type 2 diabetes mellitus without complications; E03.9 Hypothyroidism, unspecified; E55.9 Vitamin D deficiency, unspecified; F17.200 Nicotine dependence, unspecified, uncomplicated; F41.9 Anxiety disorder, unspecified; G47.00 Insomnia, unspecified; J44.9 Chronic obstructive pulmonary disease, unspecified; K21.9 Gastro-esophageal reflux disease without esophagitis; Z59.0 Homelessness; Z65.3 Problems related to other legal circumstances; Z91.19 Patient's noncompliance with other medical treatment and regimen; Z28.21 Immunization not carried out because of patient refusal; Z79.899 Other long term (current) drug therapy; Z71.6 Tobacco abuse counseling
CPT/HCPCS: 87081; 90732

== ENCOUNTER 2019-07-20 03:08 | Inpatient (IN) | payer MEDICAID ==
[~2019-07-20] VITALS: Ht 175.3 cm; Wt 74.0 kg
[~2019-07-20 03:08] MED LIST changes: +METF-444 PO; -METF-960 PO; +OLAN10TA22 PO; -OLAN10TA3 PO; +OLAN10TA6 PO; -OLAN5TAB2 PO
[2019-07-20] MEDS ORDERED: OLAN7.5T2 PO (03:15)
[2019-07-20 04:12] LABS: BASOPHILS % (AUTO) 0.7 % (0.0-2.0); EOSINOPHILS % (AUTO) 2.6 % (1.0-6.0); HEMATOCRIT 38.2 % (41-53); HEMOGLOBIN 13.1 g/dL (13.5-17.5); LYMPHOCYTES # (AUTO) 1.7 K/uL (1.0-4.8); LYMPHOCYTES % (AUTO) 30.8 % (22.0-44.0); MEAN CORPUSCULAR HGB CONC 34.3 G/dL (31.0-37.0); MEAN CORPUSCULAR VOLUME 90 fL (80-100); MONOCYTES # (AUTO) 0.5 K/uL (0.1-1.0); MONOCYTES % (AUTO) 9.1 % (2.0-9.0); NEUTROPHILS # (AUTO) 3.2 K/uL (1.8-7.7); NEUTROPHILS % (AUTO) 56.8 % (40.0-70.0); PLATELET COUNT (AUTO) 314 K/uL (150-450); RED BLOOD CELL COUNT(AUTO) 4.23 MIL/uL (4.50-5.90); RED CELL DISTRIBUTION WIDTH 12.8 % (11.5-14.5)
[2019-07-20 04:21] LABS: ANION GAP 9 mmol/L (8-16); CARBON DIOXIDE 31 mmol/L (22-29); CHLORIDE 99 mmol/L (98-107); CREATININE 0.83 mg/dL (0.60-1.30); GLOMERULAR FILTR. RATE CALC > 60 mL/min (>60); GLUCOSE,RANDOM 119 mg/dL (70-110); POTASSIUM 3.8 mmol/L (3.5-5.1); SODIUM SERUM 139 mmol/L (136-145); UREA NITROGEN, BLOOD 13 mg/dL (7-18)
[2019-07-20 04:26] LABS: ALANINE AMINOTRANSFERASE 28 U/L (12-78); ALBUMIN 4.1 g/dL (3.4-5.0); ALKALINE PHOSPHATASE 78 U/L (46-116); ASPARTATE AMINOTRANSFERASE 28 U/L (15-37); BILIRUBIN,TOTAL 0.8 mg/dL (0.1-1.0); TOTAL PROTEIN, SERUM 7.6 g/dL (6.4-8.2)
[2019-07-20] MEDS ORDERED: OLANZapine 5 MG TABLET PO ONE (04:45)
[2019-07-20] MEDS ORDERED: OLANZapine 5 MG RAPDIS TABLET PO PRN (05:45)
[2019-07-20] MEDS ORDERED: LOPERAMIDE HCL 2 MG CAPSULE PO PRN (08:15)
[2019-07-20] MEDS ORDERED: DOCUSATE SODIUM 100 MG CAPSULE PO PRN (08:15)
[2019-07-20] MEDS ORDERED: DEXTROSE 50%-WATER 25 GM/50 ML SYRINGE IVP PRN (08:15)
[2019-07-20] MEDS ORDERED: MAG HYDROX/AL HYDROX/SIMETH ES 30 ML SUSPENSION UDCUP PO PRN (08:15)
[2019-07-20] MEDS ORDERED: OMEPRAZOLE 20 MG CAPSULE PO PRN (08:15)
[2019-07-20] MEDS ORDERED: MAGNESIUM HYDROXIDE SUSPENSION 30 ML UDCUP PO PRN (08:15)
[2019-07-20] MEDS ORDERED: ALBUTEROL SULFATE HFA 90 MCG/PUFF 8 GM INHALER IH PRN (08:15)
[2019-07-20] MEDS ORDERED: IBUPROFEN 600 MG TABLET PO PRN (08:15)
[2019-07-20] MEDS ORDERED: PETROLATUM,WHITE 28 GM JELLY TP PRN (08:15)
[2019-07-20] MEDS ORDERED: BACITRACIN 28.4 GM OINTMENT TP PRN (08:15)
[2019-07-20] MEDS ORDERED: ONDANSETRON HCL 4 MG TABLET PO PRN (08:15)
[2019-07-20] MEDS ORDERED: ACETAMINOPHEN 325 MG TABLET PO PRN (08:15)
[2019-07-20] MEDS ORDERED: BENZOCAINE/MENTHOL LOZENGE MM PRN (08:15)
[2019-07-20] MEDS ORDERED: CloNIDine HCL 0.1 MG TABLET PO PRN (08:15)
[2019-07-20 09:05] LABS: AMPHET/METH SCREEN,URINE POSITIVE (NEGATIVE); BARBITURATE SCREEN, URINE NEGATIVE (NEGATIVE); BENZODIAZEPINES SCREEN,URINE NEGATIVE (NEGATIVE); CANNABINOID SCREEN,URINE NEGATIVE (NEGATIVE); COCAINE SCREEN,URINE NEGATIVE (NEGATIVE); METHADONE SCREEN, URINE NEGATIVE (NEGATIVE); OPIATE SCREEN,URINE NEGATIVE (NEGATIVE); PHENCYCLIDINE SCREEN,URINE NEGATIVE (NEGATIVE)
[2019-07-20 12:56] VITALS: BP 152/88
[2019-07-20 13:21] LABS: GLUCOMETER DEV NAME(LOC) 3E.I; GLUCOSE,POINT OF CARE 94 MG/DL (70-110)
[2019-07-20] MEDS ORDERED: GuaiFENesin/D-METHORPHAN [SUGAR-FREE] 200-20MG/10 ML SYRUP UDCUP PO PRN (13:45)
[2019-07-20] MEDS ORDERED: HydrOXYzine PAMOATE 50 MG CAPSULE PO PRN (13:45)
[2019-07-20 16:16] VITALS: BP 144/62
[2019-07-20] MEDS: LORazepam 2 MG TABLET PO PRN (17:20)
[2019-07-20] MEDS: THIAMINE HCL 100 MG TABLET PO SCH (17:20)
[2019-07-20] MEDS: MetFORMIN HCL 500 MG TABLET PO SCH (17:20)
[2019-07-20 17:30] LABS: GLUCOMETER DEV NAME(LOC) 3E.I; GLUCOSE,POINT OF CARE 79 MG/DL (70-110)
[2019-07-20] MEDS: OLANZapine 5 MG TABLET PO SCH (21:11)
[2019-07-21 05:41] LABS: GLUCOMETER DEV NAME(LOC) 3E.I; GLUCOSE,POINT OF CARE 99 MG/DL (70-110)
[2019-07-21] MEDS: MetFORMIN HCL 500 MG TABLET PO SCH ×2 (07:01→17:07)
[2019-07-21] MEDS: INSULIN LISPRO 100 UNITS/ML SQ PRN ×2 (07:01→17:09)
[2019-07-21 07:47] LABS: CHOL/HDL RATIO 3.1 (4.2-7.3); FREE T4 (FREE THYROXINE) 1.08 ng/dL (0.76-1.46); THYROID STIMULATING HORMONE 1.84 uIU/mL (0.36-3.74)
[2019-07-21] MEDS: THIAMINE HCL 100 MG TABLET PO SCH ×2 (09:52→17:08)
[2019-07-21] MEDS: MULTIVITAMINS WITH MINERALS, THERAPEUTIC TABLET PO SCH (09:52)
[2019-07-21] MEDS: FOLIC ACID 1 MG TABLET PO SCH (09:53)
[2019-07-21 11:30] LABS: GLUCOSE,POINT OF CARE 113 MG/DL (70-110)
[2019-07-21 11:31] LABS: GLUCOMETER DEV NAME(LOC) 3E.I
[2019-07-21 17:00] VITALS: BP 135/75
[2019-07-21] MEDS: LORazepam 2 MG TABLET PO PRN (17:00)
[2019-07-21 17:17] LABS: GLUCOMETER DEV NAME(LOC) 3E.I; GLUCOSE,POINT OF CARE 157 MG/DL (70-110)
[2019-07-21] MEDS: OLANZapine 5 MG TABLET PO SCH (20:41)
[2019-07-21] MEDS: ZOLPIDEM TARTRATE 10 MG TABLET PO PRN (22:45)
[2019-07-22 05:35] LABS: GLUCOMETER DEV NAME(LOC) 3E.I; GLUCOSE,POINT OF CARE 100 MG/DL (70-110)
[2019-07-22] MEDS: MetFORMIN HCL 500 MG TABLET PO SCH ×2 (06:43→16:22)
[2019-07-22] MEDS: INSULIN LISPRO 100 UNITS/ML SQ PRN ×2 (06:43→17:24)
[2019-07-22] MEDS: FOLIC ACID 1 MG TABLET PO SCH (09:03)
[2019-07-22] MEDS: THIAMINE HCL 100 MG TABLET PO SCH ×2 (09:03→16:22)
[2019-07-22] MEDS: MULTIVITAMINS WITH MINERALS, THERAPEUTIC TABLET PO SCH (09:03)
[2019-07-22 11:50] LABS: GLUCOMETER DEV NAME(LOC) 3E.I; GLUCOSE,POINT OF CARE 120 MG/DL (70-110)
[2019-07-22 16:44] VITALS: BP 104/63
[2019-07-22 17:37] LABS: GLUCOMETER DEV NAME(LOC) 3E.I; GLUCOSE,POINT OF CARE 145 MG/DL (70-110)
[2019-07-22] MEDS: OLANZapine 5 MG TABLET PO SCH (20:16)
[2019-07-23 06:02] LABS: GLUCOMETER DEV NAME(LOC) 3E.I; GLUCOSE,POINT OF CARE 89 MG/DL (70-110)
[2019-07-23] MEDS: MetFORMIN HCL 500 MG TABLET PO SCH ×2 (06:48→17:01)
[2019-07-23 06:57] VITALS: BP 107/71
[2019-07-23] MEDS: THIAMINE HCL 100 MG TABLET PO SCH ×2 (08:22→17:02)
[2019-07-23] MEDS: FOLIC ACID 1 MG TABLET PO SCH (08:22)
[2019-07-23] MEDS: MULTIVITAMINS WITH MINERALS, THERAPEUTIC TABLET PO SCH (08:22)
[2019-07-23 10:09] VITALS: BP 95/53
[2019-07-23 11:30] LABS: GLUCOMETER DEV NAME(LOC) 3E.I; GLUCOSE,POINT OF CARE 103 MG/DL (70-110)
[2019-07-23 16:00] VITALS: BP 102/68
[2019-07-23 16:26] LABS: GLUCOMETER DEV NAME(LOC) 3E.I; GLUCOSE,POINT OF CARE 137 MG/DL (70-110)
[2019-07-23] MEDS: LORazepam 2 MG TABLET PO PRN (17:01)
[2019-07-23] MEDS: OLANZapine 5 MG TABLET PO SCH (21:02)
[2019-07-23] MEDS: ZOLPIDEM TARTRATE 10 MG TABLET PO PRN (21:03)
[2019-07-23 21:26] LABS: GLUCOMETER DEV NAME(LOC) 3E.I; GLUCOSE,POINT OF CARE 119 MG/DL (70-110)
[2019-07-24 05:52] LABS: GLUCOMETER DEV NAME(LOC) 3EX.; GLUCOSE,POINT OF CARE 108 MG/DL (70-110)
[2019-07-24] MEDS: MetFORMIN HCL 500 MG TABLET PO SCH ×2 (06:49→16:11)
[2019-07-24] MEDS: MULTIVITAMINS WITH MINERALS, THERAPEUTIC TABLET PO SCH (08:16)
[2019-07-24] MEDS: FOLIC ACID 1 MG TABLET PO SCH (08:16)
[2019-07-24] MEDS: THIAMINE HCL 100 MG TABLET PO SCH ×2 (08:16→16:11)
[2019-07-24 11:00] LABS: GLUCOMETER DEV NAME(LOC) 3E.I; GLUCOSE,POINT OF CARE 108 MG/DL (70-110)
[2019-07-24 13:18] VITALS: BP 118/78
[2019-07-24 16:16] LABS: GLUCOMETER DEV NAME(LOC) 3E.I; GLUCOSE,POINT OF CARE 171 MG/DL (70-110)
[2019-07-24 17:19] VITALS: BP 122/70
[2019-07-24] MEDS: INSULIN LISPRO 100 UNITS/ML SQ PRN (17:34)
[2019-07-24] MEDS: OLANZapine 10 MG TABLET PO SCH (20:21)
[2019-07-25 05:37] LABS: GLUCOMETER DEV NAME(LOC) 3E.I; GLUCOSE,POINT OF CARE 93 MG/DL (70-110)
[2019-07-25 06:33] VITALS: BP 98/62
[2019-07-25] MEDS: MetFORMIN HCL 500 MG TABLET PO SCH ×2 (06:45→16:45)
[2019-07-25] MEDS: INSULIN LISPRO 100 UNITS/ML SQ PRN ×2 (06:45→12:09)
[2019-07-25] MEDS: MULTIVITAMINS WITH MINERALS, THERAPEUTIC TABLET PO SCH (09:21)
[2019-07-25] MEDS: THIAMINE HCL 100 MG TABLET PO SCH ×2 (09:21→16:45)
[2019-07-25] MEDS: FOLIC ACID 1 MG TABLET PO SCH (09:25)
[2019-07-25 12:07] LABS: GLUCOMETER DEV NAME(LOC) 3E.I; GLUCOSE,POINT OF CARE 87 MG/DL (70-110)
[2019-07-25 14:27] VITALS: BP 112/71
[2019-07-25 17:37] LABS: GLUCOMETER DEV NAME(LOC) 3E.I; GLUCOSE,POINT OF CARE 135 MG/DL (70-110)
[2019-07-25 18:56] VITALS: BP 116/68
[2019-07-25] MEDS: OLANZapine 10 MG TABLET PO SCH (20:34)
[2019-07-26 05:34] LABS: GLUCOMETER DEV NAME(LOC) 3E.I; GLUCOSE,POINT OF CARE 101 MG/DL (70-110)
[2019-07-26] MEDS: MetFORMIN HCL 500 MG TABLET PO SCH (07:03)
[2019-07-26] MEDS: INSULIN LISPRO 100 UNITS/ML SQ PRN (07:03)
[2019-07-26] MEDS: MULTIVITAMINS WITH MINERALS, THERAPEUTIC TABLET PO SCH (10:02)
[2019-07-26] MEDS: THIAMINE HCL 100 MG TABLET PO SCH (10:02)
[2019-07-26] MEDS: FOLIC ACID 1 MG TABLET PO SCH (10:02)
[2019-07-26 10:03] VITALS: BP 129/72
[2019-07-26] MEDS ORDERED: NALT50TA6 PO (10:30)
[2019-07-26] MEDS ORDERED: OLAN10TA3 PO (10:33)
[2019-07-26] MEDS ORDERED: METF-960 PO (10:36)
== END 2019-07-26 11:22 | disposition home or self-care (01) | DRG 750 ==
LOC: EMS 03:08 → 3EI 06:00
PROVIDERS: ADMIT Psychiatry & Neurology Psychiatry; ATTEND Psychiatry & Neurology Psychiatry
DX: F25.1 Schizoaffective disorder, depressive type (principal); E11.9 Type 2 diabetes mellitus without complications; R45.851 Suicidal ideations; E03.9 Hypothyroidism, unspecified; F15.10 Other stimulant abuse, uncomplicated; K21.9 Gastro-esophageal reflux disease without esophagitis; J44.9 Chronic obstructive pulmonary disease, unspecified; E55.9 Vitamin D deficiency, unspecified; F41.9 Anxiety disorder, unspecified; F17.210 Nicotine dependence, cigarettes, uncomplicated; Z59.0 Homelessness
CPT/HCPCS: 84439; 84443; 87081; G0480

== ENCOUNTER 2019-07-31 00:33 | Inpatient (IN) | payer MEDICAID, OTHER ==
[~2019-07-31] VITALS: Ht 175.3 cm; Wt 74.0 kg
[~2019-07-31 00:33] MED LIST changes: -METF-444 PO; +METF-960 PO; -NALT50TA PO; +NALT50TA6 PO; -OLAN10TA22 PO; +OLAN10TA3 PO; -OLAN10TA6 PO
[2019-07-31 01:05] LABS: GLUCOSE,POINT OF CARE 155 MG/DL (70-110)
[2019-07-31 01:19] LABS: BASOPHILS % (AUTO) 0.9 % (0.0-2.0); EOSINOPHILS % (AUTO) 2.7 % (1.0-6.0); HEMATOCRIT 37.5 % (41-53); HEMOGLOBIN 12.8 g/dL (13.5-17.5); LYMPHOCYTES # (AUTO) 1.5 K/uL (1.0-4.8); LYMPHOCYTES % (AUTO) 29.1 % (22.0-44.0); MEAN CORPUSCULAR HEMOGLOBIN 30.6 pg (26.0-34.0); MEAN CORPUSCULAR HGB CONC 34.2 G/dL (31.0-37.0); MEAN CORPUSCULAR VOLUME 89 fL (80-100); MONOCYTES # (AUTO) 0.5 K/uL (0.1-1.0); MONOCYTES % (AUTO) 9.9 % (2.0-9.0); NEUTROPHILS % (AUTO) 57.4 % (40.0-70.0); PLATELET COUNT (AUTO) 304 K/uL (150-450); RED CELL DISTRIBUTION WIDTH 12.8 % (11.5-14.5)
[2019-07-31 01:24] LABS: ANION GAP 8 mmol/L (8-16); CALCIUM, TOTAL 8.8 mg/dL (8.8-10.5); CARBON DIOXIDE 28 mmol/L (22-29); CHLORIDE 103 mmol/L (98-107); CREATININE 0.82 mg/dL (0.60-1.30); GLOMERULAR FILTR. RATE CALC > 60 mL/min (>60); GLUCOSE,RANDOM 173 mg/dL (70-110); SODIUM SERUM 139 mmol/L (136-145); UREA NITROGEN, BLOOD 18 mg/dL (7-18)
[2019-07-31 01:30] LABS: ALANINE AMINOTRANSFERASE 21 U/L (12-78); ALBUMIN 3.7 g/dL (3.4-5.0); ALKALINE PHOSPHATASE 61 U/L (46-116); ASPARTATE AMINOTRANSFERASE 24 U/L (15-37); BILIRUBIN,TOTAL 0.8 mg/dL (0.1-1.0); TOTAL PROTEIN, SERUM 6.8 g/dL (6.4-8.2)
[2019-07-31] MEDS ORDERED: OLANZapine 5 MG TABLET PO ONE (03:00)
[2019-07-31] MEDS ORDERED: ZOLPIDEM TARTRATE 10 MG TABLET PO PRN ×2 (03:45→09:00)
[2019-07-31] MEDS ORDERED: HALOPERIDOL 5 MG TABLET PO PRN (03:45)
[2019-07-31] MEDS ORDERED: LORazepam 2 MG TABLET PO PRN ×2 (03:45→09:00)
[2019-07-31 05:40] LABS: AMPHET/METH SCREEN,URINE POSITIVE (NEGATIVE); BARBITURATE SCREEN, URINE NEGATIVE (NEGATIVE); BENZODIAZEPINES SCREEN,URINE NEGATIVE (NEGATIVE); CANNABINOID SCREEN,URINE NEGATIVE (NEGATIVE); COCAINE SCREEN,URINE NEGATIVE (NEGATIVE); METHADONE SCREEN, URINE NEGATIVE (NEGATIVE); OPIATE SCREEN,URINE NEGATIVE (NEGATIVE)
[2019-07-31 05:46] LABS: PHENCYCLIDINE SCREEN,URINE NEGATIVE (NEGATIVE)
[2019-07-31] MEDS ORDERED: OLANZapine 5 MG RAPDIS TABLET PO PRN (09:00)
[2019-07-31] MEDS ORDERED: GuaiFENesin/D-METHORPHAN [SUGAR-FREE] 200-20MG/10 ML SYRUP UDCUP PO PRN (10:30)
[2019-07-31] MEDS ORDERED: PROMETHAZINE HCL 25 MG TABLET PO PRN (10:30)
[2019-07-31] MEDS ORDERED: MAG HYDROX/AL HYDROX/SIMETH ES 30 ML SUSPENSION UDCUP PO PRN (10:30)
[2019-07-31] MEDS ORDERED: HydrOXYzine PAMOATE 50 MG CAPSULE PO PRN (10:30)
[2019-07-31] MEDS ORDERED: LOPERAMIDE HCL 2 MG CAPSULE PO PRN (10:30)
[2019-07-31] MEDS ORDERED: ACETAMINOPHEN 325 MG TABLET PO PRN (10:30)
[2019-07-31] MEDS ORDERED: PALIPERIDONE 3 MG ER TABLET PO PRN (10:30)
[2019-07-31] MEDS ORDERED: MAGNESIUM HYDROXIDE SUSPENSION 30 ML UDCUP PO PRN (10:30)
[2019-07-31] MEDS ORDERED: PALIPERIDONE PALMITATE 234 MG/1.5 ML SYRINGE IM ONE (16:00)
[2019-07-31 16:06] VITALS: BP 110/65
[2019-07-31 16:15] LABS: GLUCOMETER DEV NAME(LOC) BV2X.; GLUCOSE,POINT OF CARE 111 MG/DL (70-110)
[2019-07-31] MEDS: THIAMINE HCL 100 MG TABLET PO SCH (16:37)
[2019-07-31] MEDS: PALIPERIDONE 3 MG ER TABLET PO SCH (20:35)
[2019-08-01 07:01] LABS: GLUCOMETER DEV NAME(LOC) BV2S.; GLUCOSE,POINT OF CARE 113 MG/DL (70-110)
[2019-08-01] MEDS: FOLIC ACID 1 MG TABLET PO SCH (09:17)
[2019-08-01] MEDS: NALTREXONE HCL 50 MG TABLET PO SCH (09:17)
[2019-08-01] MEDS: MULTIVITAMINS WITH MINERALS, THERAPEUTIC TABLET PO SCH (09:17)
[2019-08-01] MEDS: THIAMINE HCL 100 MG TABLET PO SCH ×2 (09:17→16:28)
[2019-08-01 16:24] VITALS: BP 114/60
[2019-08-01 17:06] LABS: GLUCOMETER DEV NAME(LOC) BV2S.; GLUCOSE,POINT OF CARE 172 MG/DL (70-110)
[2019-08-01] MEDS: PALIPERIDONE 3 MG ER TABLET PO SCH (20:12)
[2019-08-02 06:46] LABS: GLUCOMETER DEV NAME(LOC) BV2S.; GLUCOSE,POINT OF CARE 98 MG/DL (70-110)
[2019-08-02 08:26] VITALS: BP 103/62
[2019-08-02] MEDS: NALTREXONE HCL 50 MG TABLET PO SCH (09:00)
[2019-08-02] MEDS ORDERED: PALI156D IM ×2 (09:15→10:51)
[2019-08-02] MEDS ORDERED: NALT50TA6 PO (09:21)
[2019-08-02] MEDS: THIAMINE HCL 100 MG TABLET PO SCH (09:31)
[2019-08-02] MEDS: MULTIVITAMINS WITH MINERALS, THERAPEUTIC TABLET PO SCH (09:31)
[2019-08-02] MEDS: FOLIC ACID 1 MG TABLET PO SCH (09:31)
[2019-08-02] MEDS ORDERED: PALI117D IM (10:51)
[2019-08-04] MEDS ORDERED: PALIPERIDONE PALMITATE 156 MG/ML SYRINGE IM ONE (09:00)
== END 2019-08-02 09:50 | disposition home or self-care (01) | DRG 750 ==
LOC: EMS 00:35 → B2S 12:43 → B2X 13:27 → B2S 20:16
PROVIDERS: ADMIT Psychiatry & Neurology Psychiatry; ATTEND Psychiatry & Neurology Psychiatry
DX: F25.9 Schizoaffective disorder, unspecified (principal); R45.851 Suicidal ideations; E11.9 Type 2 diabetes mellitus without complications; E03.9 Hypothyroidism, unspecified; E55.9 Vitamin D deficiency, unspecified; F17.200 Nicotine dependence, unspecified, uncomplicated; F32.9 Major depressive disorder, single episode, unspecified; F41.9 Anxiety disorder, unspecified; J44.9 Chronic obstructive pulmonary disease, unspecified; K21.9 Gastro-esophageal reflux disease without esophagitis; Z59.0 Homelessness; Z81.8 Family history of other mental and behavioral disorders; Z91.19 Patient's noncompliance with other medical treatment and regimen
CPT/HCPCS: 87081; 93005; 99406; G0480

== ENCOUNTER 2019-08-05 00:59 | Inpatient (IN) | payer MEDICAID ==
[~2019-08-05] VITALS: Ht 175.3 cm; Wt 74.8 kg
[~2019-08-05 00:59] MED LIST changes: -METF-960 PO; -OLAN10TA3 PO; +PALI117D IM
[2019-08-05 01:21] LABS: GLUCOSE,POINT OF CARE 169 MG/DL (70-110)
[2019-08-05 01:44] LABS: BASOPHILS % (AUTO) 0.3 % (0.0-2.0); EOSINOPHILS % (AUTO) 2.4 % (1.0-6.0); HEMATOCRIT 35.7 % (41-53); HEMOGLOBIN 12.5 g/dL (13.5-17.5); LYMPHOCYTES # (AUTO) 1.4 K/uL (1.0-4.8); LYMPHOCYTES % (AUTO) 33.1 % (22.0-44.0); MEAN CORPUSCULAR HEMOGLOBIN 30.7 pg (26.0-34.0); MEAN CORPUSCULAR HGB CONC 34.9 G/dL (31.0-37.0); MEAN CORPUSCULAR VOLUME 88 fL (80-100); MONOCYTES # (AUTO) 0.4 K/uL (0.1-1.0); MONOCYTES % (AUTO) 9.2 % (2.0-9.0); NEUTROPHILS # (AUTO) 2.4 K/uL (1.8-7.7); PLATELET COUNT (AUTO) 272 K/uL (150-450); RED BLOOD CELL COUNT(AUTO) 4.06 MIL/uL (4.50-5.90); RED CELL DISTRIBUTION WIDTH 12.8 % (11.5-14.5)
[2019-08-05 01:57] LABS: ANION GAP 7 mmol/L (8-16); CALCIUM, TOTAL 8.7 mg/dL (8.8-10.5); CARBON DIOXIDE 30 mmol/L (22-29); CHLORIDE 103 mmol/L (98-107); GLOMERULAR FILTR. RATE CALC > 60 mL/min (>60); GLUCOSE,RANDOM 161 mg/dL (70-110); POTASSIUM 3.6 mmol/L (3.5-5.1); SODIUM SERUM 140 mmol/L (136-145); UREA NITROGEN, BLOOD 18 mg/dL (7-18)
[2019-08-05 02:04] LABS: ALANINE AMINOTRANSFERASE 11 U/L (12-78); ALBUMIN 3.6 g/dL (3.4-5.0); ALKALINE PHOSPHATASE 65 U/L (46-116); ASPARTATE AMINOTRANSFERASE 15 U/L (15-37); BILIRUBIN,TOTAL 0.6 mg/dL (0.1-1.0); TOTAL PROTEIN, SERUM 6.7 g/dL (6.4-8.2)
[2019-08-05] MEDS ORDERED: OLANZapine 5 MG RAPDIS TABLET PO PRN (02:15)
[2019-08-05] MEDS ORDERED: ZOLPIDEM TARTRATE 10 MG TABLET PO PRN (02:15)
[2019-08-05 05:51] VITALS: BP 126/80
[2019-08-05] MEDS ORDERED: PNEUMOCOCCAL VACCINE POLYVALENT 0.5 ML VIAL [PPSV23] IM ONE (06:45)
[2019-08-05 06:50] LABS: GLUCOMETER DEV NAME(LOC) BV2S.; GLUCOSE,POINT OF CARE 176 MG/DL (70-110)
[2019-08-05 08:20] VITALS: BP 122/74
[2019-08-05 16:00] VITALS: BP 103/66
[2019-08-05 17:40] VITALS: BP 118/73
[2019-08-05] MEDS: LORazepam 2 MG TABLET PO PRN (17:45)
[2019-08-05] MEDS ORDERED: MAGNESIUM HYDROXIDE SUSPENSION 30 ML UDCUP PO PRN (18:45)
[2019-08-05] MEDS ORDERED: ACETAMINOPHEN 325 MG TABLET PO PRN (18:45)
[2019-08-05] MEDS ORDERED: BENZOCAINE/MENTHOL LOZENGE MM PRN (18:45)
[2019-08-05] MEDS ORDERED: MAG HYDROX/AL HYDROX/SIMETH ES 30 ML SUSPENSION UDCUP PO PRN (18:45)
[2019-08-05] MEDS ORDERED: OMEPRAZOLE 20 MG CAPSULE PO PRN (18:45)
[2019-08-05] MEDS ORDERED: ONDANSETRON HCL 4 MG TABLET PO PRN (18:45)
[2019-08-05] MEDS ORDERED: ALBUTEROL SULFATE HFA 90 MCG/PUFF 8 GM INHALER IH PRN (18:45)
[2019-08-05] MEDS ORDERED: DOCUSATE SODIUM 100 MG CAPSULE PO PRN (18:45)
[2019-08-05] MEDS ORDERED: CloNIDine HCL 0.1 MG TABLET PO PRN (18:45)
[2019-08-05] MEDS ORDERED: BACITRACIN 28.4 GM OINTMENT TP PRN (18:45)
[2019-08-05] MEDS ORDERED: LOPERAMIDE HCL 2 MG CAPSULE PO PRN (18:45)
[2019-08-05] MEDS ORDERED: IBUPROFEN 600 MG TABLET PO PRN (18:45)
[2019-08-05] MEDS ORDERED: PETROLATUM,WHITE 28 GM JELLY TP PRN (18:45)
[2019-08-05] MEDS ORDERED: INSULIN LISPRO 100 UNITS/ML SQ PRN (20:00)
[2019-08-05] MEDS ORDERED: DEXTROSE 50%-WATER 25 GM/50 ML SYRINGE IVP PRN (20:00)
[2019-08-05] MEDS ORDERED: GLUCAGON,HUMAN RECOMBINANT 1 MG VIAL IM PRN (20:00)
[2019-08-05 21:35] LABS: GLUCOMETER DEV NAME(LOC) BV2S.; GLUCOSE,POINT OF CARE 155 MG/DL (70-110)
[2019-08-06] MEDS: MetFORMIN HCL 500 MG TABLET PO SCH ×2 (06:25→16:47)
[2019-08-06 06:31] LABS: GLUCOMETER DEV NAME(LOC) BV2S.; GLUCOSE,POINT OF CARE 114 MG/DL (70-110)
[2019-08-06 08:19] VITALS: BP 125/69
[2019-08-06 08:35] LABS: CHOL/HDL RATIO 2.7 (4.2-7.3)
[2019-08-06] MEDS: LORazepam 2 MG TABLET PO PRN ×2 (11:01→17:18)
[2019-08-06 11:14] LABS: GLUCOMETER DEV NAME(LOC) BV2S.; GLUCOSE,POINT OF CARE 147 MG/DL (70-110)
[2019-08-06 16:00] VITALS: BP 122/72
[2019-08-06 16:51] LABS: GLUCOMETER DEV NAME(LOC) BV2S.; GLUCOSE,POINT OF CARE 170 MG/DL (70-110)
[2019-08-06] MEDS: INSULIN LISPRO 100 UNITS/ML SQ PRN ×3 (17:30→21:26)
[2019-08-06] MEDS: DiphenhydrAMINE HCL 25 MG CAPSULE PO SCH (20:49)
[2019-08-06] MEDS: OLANZapine 10 MG TABLET PO SCH (20:50)
[2019-08-06 20:51] LABS: GLUCOMETER DEV NAME(LOC) BV2S.; GLUCOSE,POINT OF CARE 152 MG/DL (70-110)
[2019-08-07 06:16] LABS: GLUCOMETER DEV NAME(LOC) BV2S.; GLUCOSE,POINT OF CARE 100 MG/DL (70-110)
[2019-08-07] MEDS: MetFORMIN HCL 500 MG TABLET PO SCH ×2 (06:46→16:23)
[2019-08-07 08:23] VITALS: BP 109/67
[2019-08-07] MEDS ORDERED: GuaiFENesin/D-METHORPHAN [SUGAR-FREE] 200-20MG/10 ML SYRUP UDCUP PO PRN (11:00)
[2019-08-07] MEDS ORDERED: HydrOXYzine PAMOATE 50 MG CAPSULE PO PRN (11:00)
[2019-08-07 11:09] LABS: GLUCOMETER DEV NAME(LOC) BV2S.; GLUCOSE,POINT OF CARE 110 MG/DL (70-110)
[2019-08-07] MEDS ORDERED: PALIPERIDONE PALMITATE 156 MG/ML SYRINGE IM ONE (16:00)
[2019-08-07 16:07] VITALS: BP 109/63
[2019-08-07] MEDS: THIAMINE HCL 100 MG TABLET PO SCH (16:23)
[2019-08-07] MEDS: DiphenhydrAMINE HCL 25 MG CAPSULE PO SCH (20:31)
[2019-08-07] MEDS: OLANZapine 10 MG TABLET PO SCH (20:31)
[2019-08-07 21:41] LABS: GLUCOMETER DEV NAME(LOC) BV2S.; GLUCOSE,POINT OF CARE 139 MG/DL (70-110)
[2019-08-08 01:35] VITALS: BP 114/68
[2019-08-08] MEDS: MetFORMIN HCL 500 MG TABLET PO SCH ×2 (06:31→16:36)
[2019-08-08 06:41] LABS: GLUCOMETER DEV NAME(LOC) BV2S.; GLUCOSE,POINT OF CARE 106 MG/DL (70-110)
[2019-08-08] MEDS: MULTIVITAMINS WITH MINERALS, THERAPEUTIC TABLET PO SCH (08:32)
[2019-08-08] MEDS: FOLIC ACID 1 MG TABLET PO SCH (08:32)
[2019-08-08] MEDS: THIAMINE HCL 100 MG TABLET PO SCH ×2 (08:32→16:36)
[2019-08-08 08:40] VITALS: BP 108/63
[2019-08-08 11:16] LABS: GLUCOMETER DEV NAME(LOC) BV2S.; GLUCOSE,POINT OF CARE 104 MG/DL (70-110)
[2019-08-08 16:07] VITALS: BP 122/71
[2019-08-08 16:51] LABS: GLUCOMETER DEV NAME(LOC) BV2S.; GLUCOSE,POINT OF CARE 191 MG/DL (70-110)
[2019-08-08] MEDS: INSULIN LISPRO 100 UNITS/ML SQ PRN (16:56)
[2019-08-08] MEDS: DiphenhydrAMINE HCL 25 MG CAPSULE PO SCH (20:19)
[2019-08-08 20:31] LABS: GLUCOMETER DEV NAME(LOC) BV2S.; GLUCOSE,POINT OF CARE 118 MG/DL (70-110)
[2019-08-08] MEDS ORDERED: OLANZapine 7.5 MG TABLET PO SCH (21:00)
[2019-08-09 06:05] VITALS: BP 120/81
[2019-08-09 06:21] LABS: GLUCOMETER DEV NAME(LOC) BV2S.; GLUCOSE,POINT OF CARE 95 MG/DL (70-110)
[2019-08-09] MEDS: MetFORMIN HCL 500 MG TABLET PO SCH ×2 (06:32→16:25)
[2019-08-09] MEDS: MULTIVITAMINS WITH MINERALS, THERAPEUTIC TABLET PO SCH (08:24)
[2019-08-09] MEDS: THIAMINE HCL 100 MG TABLET PO SCH ×2 (08:24→16:26)
[2019-08-09] MEDS: FOLIC ACID 1 MG TABLET PO SCH (08:24)
[2019-08-09 08:34] VITALS: BP 111/67
[2019-08-09 11:36] LABS: GLUCOMETER DEV NAME(LOC) BV2S.; GLUCOSE,POINT OF CARE 104 MG/DL (70-110)
[2019-08-09 16:07] VITALS: BP 105/61
[2019-08-09 16:32] LABS: GLUCOMETER DEV NAME(LOC) BV2S.; GLUCOSE,POINT OF CARE 161 MG/DL (70-110)
[2019-08-09] MEDS: INSULIN LISPRO 100 UNITS/ML SQ PRN ×2 (17:21→20:31)
[2019-08-09] MEDS: OLANZapine 10 MG TABLET PO SCH (20:18)
[2019-08-09] MEDS: DiphenhydrAMINE HCL 25 MG CAPSULE PO SCH (20:18)
[2019-08-09 20:20] LABS: GLUCOMETER DEV NAME(LOC) BV2S.; GLUCOSE,POINT OF CARE 172 MG/DL (70-110)
[2019-08-10 06:06] VITALS: BP 123/80
[2019-08-10 06:16] LABS: GLUCOMETER DEV NAME(LOC) BV2S.; GLUCOSE,POINT OF CARE 107 MG/DL (70-110)
[2019-08-10] MEDS: MetFORMIN HCL 500 MG TABLET PO SCH ×2 (06:37→16:03)
[2019-08-10 08:22] VITALS: BP 107/64
[2019-08-10] MEDS: THIAMINE HCL 100 MG TABLET PO SCH ×2 (08:27→16:03)
[2019-08-10] MEDS: FOLIC ACID 1 MG TABLET PO SCH (08:27)
[2019-08-10] MEDS: MULTIVITAMINS WITH MINERALS, THERAPEUTIC TABLET PO SCH (08:27)
[2019-08-10 11:06] LABS: GLUCOMETER DEV NAME(LOC) BV2S.; GLUCOSE,POINT OF CARE 99 MG/DL (70-110)
[2019-08-10] MEDS ORDERED: OLAN10TA20 PO (14:02)
[2019-08-10] MEDS ORDERED: NALT50TA PO (14:02)
[2019-08-10 16:05] VITALS: BP 111/68
[2019-08-10 20:06] LABS: GLUCOMETER DEV NAME(LOC) BV2S.; GLUCOSE,POINT OF CARE 149 MG/DL (70-110)
[2019-08-10] MEDS: DiphenhydrAMINE HCL 25 MG CAPSULE PO SCH (20:07)
[2019-08-10] MEDS: OLANZapine 10 MG TABLET PO SCH (20:08)
[2019-08-10 21:06] LABS: GLUCOMETER DEV NAME(LOC) BV2S.; GLUCOSE,POINT OF CARE 139 MG/DL (70-110)
[2019-08-11 05:08] VITALS: BP 128/73
[2019-08-11] MEDS ORDERED: METF-960 PO ×2 (05:55→06:01)
[2019-08-11] MEDS: MetFORMIN HCL 500 MG TABLET PO SCH (06:52)
[2019-08-11 06:56] LABS: GLUCOMETER DEV NAME(LOC) BV2S.; GLUCOSE,POINT OF CARE 120 MG/DL (70-110)
[2019-08-11] MEDS ORDERED: NALTREXONE HCL 50 MG TABLET PO SCH (09:00)
[2019-09-04] MEDS ORDERED: PALIPERIDONE PALMITATE 117 MG/0.75 ML SYRINGE IM SCH (09:00)
== END 2019-08-11 07:15 | disposition home or self-care (01) | DRG 750 ==
LOC: EMS 00:59 → B2S 02:49
PROVIDERS: ADMIT Psychiatry & Neurology Psychiatry; ATTEND Psychiatry & Neurology Psychiatry
DX: F20.0 Paranoid schizophrenia (principal); R45.851 Suicidal ideations; E11.9 Type 2 diabetes mellitus without complications; Z91.14 Patient's other noncompliance with medication regimen; E03.9 Hypothyroidism, unspecified; F32.9 Major depressive disorder, single episode, unspecified; F41.9 Anxiety disorder, unspecified; K21.9 Gastro-esophageal reflux disease without esophagitis; F12.20 Cannabis dependence, uncomplicated; J44.9 Chronic obstructive pulmonary disease, unspecified; E55.9 Vitamin D deficiency, unspecified; F15.90 Other stimulant use, unspecified, uncomplicated; F17.200 Nicotine dependence, unspecified, uncomplicated; Z71.6 Tobacco abuse counseling; Z59.0 Homelessness; Z88.8 Allergy status to other drugs, medicaments and biological substances
CPT/HCPCS: 87081; G0480

== ENCOUNTER 2019-08-22 23:28 | Inpatient (IN) | payer MEDICAID ==
[~2019-08-22] VITALS: Ht 175.3 cm; Wt 78.0 kg
[~2019-08-22 23:28] MED LIST changes: +METF-960 PO; +NALT50TA PO; -NALT50TA6 PO; +OLAN10TA20 PO; -PALI117D IM
[2019-08-23 02:30] VITALS: BP 109/75
[2019-08-23] MEDS ORDERED: LORazepam 2 MG TABLET PO PRN (02:45)
[2019-08-23] MEDS ORDERED: ZOLPIDEM TARTRATE 10 MG TABLET PO PRN (02:45)
[2019-08-23] MEDS ORDERED: OLANZapine 5 MG RAPDIS TABLET PO PRN (02:45)
[2019-08-23 03:57] VITALS: BP 110/68
[2019-08-23] MEDS ORDERED: PNEUMOCOCCAL VACCINE POLYVALENT 0.5 ML VIAL [PPSV23] IM ONE (04:30)
[2019-08-23] MEDS ORDERED: INFLUENZA VIRUS VACCINE QVS 2019-20 (3YR+)/PF 60 MCG/0.5 ML SYRINGE IM ONE (04:30)
[2019-08-23 06:35] LABS: GLUCOMETER DEV NAME(LOC) BV2S.; GLUCOSE,POINT OF CARE 182 MG/DL (70-110)
[2019-08-23 08:00] LABS: BASOPHILS % (AUTO) 0.3 % (0.0-2.0); EOSINOPHILS % (AUTO) 2.6 % (1.0-6.0); HEMATOCRIT 38.7 % (41-53); HEMOGLOBIN 13.4 g/dL (13.5-17.5); LYMPHOCYTES # (AUTO) 1.7 K/uL (1.0-4.8); LYMPHOCYTES % (AUTO) 39.4 % (22.0-44.0); MEAN CORPUSCULAR HGB CONC 34.7 G/dL (31.0-37.0); MEAN CORPUSCULAR VOLUME 89 fL (80-100); MONOCYTES # (AUTO) 0.4 K/uL (0.1-1.0); MONOCYTES % (AUTO) 10.1 % (2.0-9.0); NEUTROPHILS % (AUTO) 47.6 % (40.0-70.0); PLATELET COUNT (AUTO) 310 K/uL (150-450); RED BLOOD CELL COUNT(AUTO) 4.33 MIL/uL (4.50-5.90); RED CELL DISTRIBUTION WIDTH 13.1 % (11.5-14.5)
[2019-08-23 08:09] LABS: APPEARANCE,URINE CLEAR (CLEAR); BILIRUBIN,URINE NEGATIVE (NEGATIVE); GLUCOSE, URINE (UA) 100 mg/dL (NEGATIVE); KETONES,URINE NEGATIVE (NEGATIVE); LEUKOCYTE ESTERASE ,URINE NEGATIVE (NEGATIVE); NITRATE,URINE NEGATIVE (NEGATIVE); OCCULT BLOOD,URINE NEGATIVE (NEGATIVE); PROTEIN,URINE NEGATIVE (NEGATIVE); UROBILINOGEN,URINE 0.2 mg/dL (<=1.0)
[2019-08-23 08:14] LABS: AMPHET/METH SCREEN,URINE POSITIVE (NEGATIVE); BARBITURATE SCREEN, URINE NEGATIVE (NEGATIVE); BENZODIAZEPINES SCREEN,URINE NEGATIVE (NEGATIVE); CANNABINOID SCREEN,URINE NEGATIVE (NEGATIVE); COCAINE SCREEN,URINE NEGATIVE (NEGATIVE); METHADONE SCREEN, URINE NEGATIVE (NEGATIVE); OPIATE SCREEN,URINE NEGATIVE (NEGATIVE); PHENCYCLIDINE SCREEN,URINE NEGATIVE (NEGATIVE)
[2019-08-23 08:15] LABS: HEMOGLOBIN A1C 6.5 % (4.5-6.2)
[2019-08-23 08:21] VITALS: BP 124/72
[2019-08-23 08:32] LABS: ALANINE AMINOTRANSFERASE 21 U/L (12-78); ALBUMIN 3.4 g/dL (3.4-5.0); ALKALINE PHOSPHATASE 53 U/L (46-116); ANION GAP 2 mmol/L (8-16); ASPARTATE AMINOTRANSFERASE 13 U/L (15-37); BILIRUBIN,TOTAL 0.5 mg/dL (0.1-1.0); CALCIUM, TOTAL 8.8 mg/dL (8.8-10.5); CARBON DIOXIDE 34 mmol/L (22-29); CHLORIDE 102 mmol/L (98-107); CHOL/HDL RATIO 3.1 (4.2-7.3); CHOLESTEROL 197 mg/dL (131-200); CREATININE 0.88 mg/dL (0.60-1.30); FREE T4 (FREE THYROXINE) 1.07 ng/dL (0.76-1.46); GLOMERULAR FILTR. RATE CALC > 60 mL/min (>60); GLUCOSE,RANDOM 166 mg/dL (70-110); HDL CHOLESTEROL 63 mg/dL (40-60); LDL CHOL (CALC.) 104 mg/dL (0-130); POTASSIUM 3.9 mmol/L (3.5-5.1); SODIUM SERUM 138 mmol/L (136-145); THYROID STIMULATING HORMONE 4.49 uIU/mL (0.36-3.74); TOTAL PROTEIN, SERUM 6.7 g/dL (6.4-8.2); TRIGLYCERIDES 152 mg/dL (15-150); UREA NITROGEN, BLOOD 16 mg/dL (7-18)
[2019-08-23 09:30] LABS: RBC,URINE None Seen /HPF (0-2)
[2019-08-23 09:31] LABS: BACTERIA,URINE None Seen /HPF (None Seen); CALCIUM OXALATE CRYSTALS,UR Moderate /LPF (None Seen); SQUAMOUS EPITHELIAL CELL,UR Few /LPF (None Seen)
[2019-08-23] MEDS ORDERED: PROMETHAZINE HCL 25 MG TABLET PO PRN (13:15)
[2019-08-23] MEDS ORDERED: LOPERAMIDE HCL 2 MG CAPSULE PO PRN ×2 (13:15→13:45)
[2019-08-23] MEDS ORDERED: HydrOXYzine PAMOATE 50 MG CAPSULE PO PRN (13:15)
[2019-08-23] MEDS ORDERED: GuaiFENesin/D-METHORPHAN [SUGAR-FREE] 200-20MG/10 ML SYRUP UDCUP PO PRN (13:15)
[2019-08-23] MEDS ORDERED: MAGNESIUM HYDROXIDE SUSPENSION 30 ML UDCUP PO PRN ×2 (13:15→13:45)
[2019-08-23] MEDS ORDERED: ACETAMINOPHEN 325 MG TABLET PO PRN ×2 (13:15→13:45)
[2019-08-23] MEDS ORDERED: MAG HYDROX/AL HYDROX/SIMETH ES 30 ML SUSPENSION UDCUP PO PRN ×2 (13:15→13:45)
[2019-08-23] MEDS ORDERED: IBUPROFEN 600 MG TABLET PO PRN (13:45)
[2019-08-23] MEDS ORDERED: INSULIN LISPRO 100 UNITS/ML SQ PRN (13:45)
[2019-08-23] MEDS ORDERED: ONDANSETRON HCL 4 MG TABLET PO PRN (13:45)
[2019-08-23] MEDS ORDERED: GLUCAGON,HUMAN RECOMBINANT 1 MG VIAL IM PRN (13:45)
[2019-08-23] MEDS ORDERED: PETROLATUM,WHITE 28 GM JELLY TP PRN (13:45)
[2019-08-23] MEDS ORDERED: BACITRACIN 28.4 GM OINTMENT TP PRN (13:45)
[2019-08-23] MEDS ORDERED: BENZOCAINE/MENTHOL LOZENGE MM PRN (13:45)
[2019-08-23] MEDS ORDERED: ALBUTEROL SULFATE HFA 90 MCG/PUFF 8 GM INHALER IH PRN (13:45)
[2019-08-23] MEDS ORDERED: CloNIDine HCL 0.1 MG TABLET PO PRN (13:45)
[2019-08-23 16:00] VITALS: BP 112/71
[2019-08-23 16:41] LABS: GLUCOMETER DEV NAME(LOC) BV2S.; GLUCOSE,POINT OF CARE 139 MG/DL (70-110)
[2019-08-23] MEDS: THIAMINE HCL 100 MG TABLET PO SCH (17:04)
[2019-08-23] MEDS: MetFORMIN HCL 500 MG TABLET PO SCH (17:04)
[2019-08-23] MEDS: OLANZapine 10 MG TABLET PO SCH (20:46)
[2019-08-24 00:37] VITALS: BP 118/78
[2019-08-24 06:07] LABS: GLUCOMETER DEV NAME(LOC) BV2S.; GLUCOSE,POINT OF CARE 133 MG/DL (70-110)
[2019-08-24] MEDS: MetFORMIN HCL 500 MG TABLET PO SCH (07:03)
[2019-08-24 08:17] VITALS: BP 107/80
[2019-08-24] MEDS: OLANZapine 10 MG TABLET PO SCH (08:22)
[2019-08-24] MEDS: THIAMINE HCL 100 MG TABLET PO SCH (08:22)
[2019-08-24] MEDS ORDERED: NALTREXONE HCL 50 MG TABLET PO SCH (09:00)
[2019-08-24] MEDS ORDERED: FOLIC ACID 1 MG TABLET PO SCH (09:00)
[2019-08-24] MEDS ORDERED: OMEGA-3/DHA/EPA/FISH OIL 1,000 MG CAPSULE PO SCH (09:00)
[2019-08-24] MEDS ORDERED: OMEPRAZOLE 20 MG CAPSULE PO SCH (09:00)
[2019-08-24] MEDS ORDERED: MULTIVITAMINS WITH MINERALS, THERAPEUTIC TABLET PO SCH (09:00)
[2019-08-24] MEDS ORDERED: DOCUSATE SODIUM 100 MG CAPSULE PO SCH (09:00)
[2019-08-24 11:11] LABS: GLUCOMETER DEV NAME(LOC) BV2S.; GLUCOSE,POINT OF CARE 143 MG/DL (70-110)
[2019-08-24] MEDS ORDERED: HALOPERIDOL DECANOATE 50 MG/ML VIAL IM ONE (13:15)
[2019-08-24] MEDS ORDERED: BENZTROPINE MESYLATE 2 MG TABLET PO ONE (13:15)
[2019-08-24] MEDS ORDERED: BENZ2TAB10 PO ×2 (13:29→14:18)
[2019-08-24] MEDS ORDERED: HALO50VI4 IM ×2 (13:29→14:24)
[2019-08-24] MEDS ORDERED: OMEG-135 PO ×2 (13:29→14:18)
[2019-08-24] MEDS ORDERED: NALT50TA PO (13:29)
[2019-08-24] MEDS ORDERED: FOLI1 PO (14:24)
[2019-08-24] MEDS ORDERED: DOCU-275 PO (14:24)
[2019-08-24] MEDS ORDERED: OMEP20 PO (14:24)
[2019-08-24] MEDS ORDERED: MULT-1239 PO (14:24)
[2019-08-24] MEDS ORDERED: THIA100T67 PO (14:24)
[2019-08-24] MEDS ORDERED: PALIPERIDONE PALMITATE 156 MG/ML SYRINGE IM ONE (16:00)
[2019-08-24] MEDS ORDERED: BENZTROPINE MESYLATE 2 MG TABLET PO SCH (17:00)
[2019-09-07] MEDS ORDERED: HALOPERIDOL DECANOATE 50 MG/ML VIAL IM SCH (09:00)
[2019-09-21] MEDS ORDERED: PALIPERIDONE PALMITATE 117 MG/0.75 ML SYRINGE IM SCH (09:00)
== END 2019-08-24 14:55 | disposition home or self-care (01) | DRG 750 ==
LOC: B2S 08-23 02:50
PROVIDERS: ADMIT Psychiatry & Neurology Psychiatry; ATTEND Psychiatry & Neurology Psychiatry
DX: F25.9 Schizoaffective disorder, unspecified (principal); R45.851 Suicidal ideations; E11.9 Type 2 diabetes mellitus without complications; F17.210 Nicotine dependence, cigarettes, uncomplicated; E03.9 Hypothyroidism, unspecified; E55.9 Vitamin D deficiency, unspecified; F41.9 Anxiety disorder, unspecified; J44.9 Chronic obstructive pulmonary disease, unspecified; K21.9 Gastro-esophageal reflux disease without esophagitis; Z59.0 Homelessness; Z91.19 Patient's noncompliance with other medical treatment and regimen; Z79.84 Long term (current) use of oral hypoglycemic drugs
CPT/HCPCS: 80307; 83036; 84439; 84443; 87081; 87086; J1631